=== PATIENT | female | born 1945 | race Caucasian/White ===

== ENCOUNTER 2017-01-04 07:20 | Inpatient (IN) ==
[2017-01-04] MEDS ORDERED: ASPIRIN 325 MG TABLET PO STA (07:40)
[2017-01-04] MEDS ORDERED: ONDANSETRON 4 MG/2 ML VIAL IV STA (07:40)
[2017-01-04] MEDS ORDERED: NITROGLYCERIN SL 0.4 MG TABLET SL PRN (07:40)
[2017-01-04] MEDS ORDERED: NITROGLYCERIN 2% OINT 1 INCH/GM PACK TOP STA (07:40)
[2017-01-04 07:54] LABS: Basophils % 0.5 % (0.0-0.8); Eosinophils # 0.4 10*3/uL (0.0-0.87); Hematocrit 38.8 VOL% (35.7-47.0); Hemoglobin 13.1 GM/DL (12.0-16.0); Immature Granulocytes % 0.7 %; Immature Granulocytes Absolute 0.06 #; Lymphocytes % 22.8 % (21.3-54.2); Mean Corpuscular HGB Conc 33.8 GM/DL (32-36); Mean Corpuscular Hemoglobin 31 PG (27-34); Mean Corpuscular Volume 92.6 FL (87-102); Mean Platelet Volume 10.3 FL (9.6-12.0); Monocytes # 0.5 10*3/uL (0.11-0.8); Monocytes % 6.1 % (1.7-12.7); Neutrophils # 5.8 10*3/uL (1.4-7.4); Neutrophils % 65.9 % (38.7-73.9); Platelet Count 213 T/CUMM (130-400); Red Blood Count 4.19 MC/CUMM (3.8-5.5); Red Cell Distribution Width 12.8 % (9.3-17.3); White Blood Count 8.7 T/CUMM (4-12)
[2017-01-04 08:02] LABS: INR 0.9; PT Patient Result 9.8 SECS; Partial Thromboplastin Time 26.4 SECS (0-40)
[2017-01-04 08:28] LABS: Albumin 4.2 G/DL (3.4-5.0); Bilirubin,Total 0.8 MG/DL (0.2-1.0); Magnesium 1.5 MG/DL (1.8-2.4); Osmolality,Calculated 281.4 MOS/KG (273-304); Potassium 4.9 MMOL/L (3.5-5.1); Total Protein 7.3 G/DL (6.4-8.3)
[2017-01-04] MEDS ORDERED: NITROGLYCERIN 2% OINT 1 INCH/GM PACK TOP ONE (08:40)
[2017-01-04] MEDS ORDERED: ONDANSETRON 4 MG/2 ML VIAL ONE ×2 (08:40→13:02)
[2017-01-04] MEDS ORDERED: ASPIRIN 325 MG TABLET ONE (08:40)
[2017-01-04] MEDS ORDERED: HYDROmorphone 2 MG/1 ML VIAL IV PRN (12:32)
[2017-01-04] MEDS ORDERED: AMPICILLIN/SULBACTAM 3,000 MG in SODIUM CHLORIDE 0.9% 100 ML IV STA (12:32)
[2017-01-04] MEDS ORDERED: ONDANSETRON 4 MG/2 ML VIAL IV PRN ×2 (12:32→15:53)
[2017-01-04] MEDS ORDERED: LIDOCAINE 1%/EPI INJ 20 ML VIAL ONE (12:58)
[2017-01-04] MEDS ORDERED: TISSUE ADHESIVE 1 EACH APPLICATOR TOP ONE (12:59)
[2017-01-04] MEDS ORDERED: BUPIVACAINE 0.25% 50 ML VIAL ONE (12:59)
[2017-01-04] MEDS ORDERED: HYDROmorphone 2 MG/1 ML VIAL ONE (13:02)
[2017-01-04] MEDS ORDERED: AMPICILLIN/SULBACTAM 3,000 MG VIAL ONE (13:02)
[2017-01-04] MEDS ORDERED: SODIUM CHLORIDE 0.9% 100 ML IV ONE (13:03)
[2017-01-04] MEDS ORDERED: MORPHINE 2 MG/1 ML SYRINGE IV PRN (15:53)
[2017-01-04] MEDS ORDERED: ASPIRIN EC 81 MG TABLET PO PRN (15:53)
[2017-01-04] MEDS ORDERED: DEXTROSE 50% 25 GM/50 ML VIAL IV PRN (15:53)
[2017-01-04] MEDS ORDERED: GLUCAGON 1 MG VIAL IM PRN (15:53)
[2017-01-04] MEDS ORDERED: ACETAMINOPHEN 325 MG TABLET PO PRN (15:53)
[2017-01-04] MEDS: LACTATED RINGERS 1,000 ML IV SCH (16:10)
[2017-01-04] MEDS: INSULIN LISPRO 100 UNIT/ML SUBCUT SCH ×2 (16:39→20:00)
[2017-01-04] MEDS: cefOXitin 2,000 MG in SYRINGE 1 EACH IV SCH (17:56)
[2017-01-04] MEDS ORDERED: MAGNESIUM SULF RIDER 2 GM in PREMIX 1 EACH IV PRN (18:56)
[2017-01-04] MEDS ORDERED: MAGNESIUM SULF RIDER 4 GM in PREMIX 1 EACH IV PRN (18:56)
[2017-01-04] MEDS: METOPROLOL TARTRATE 25 MG TABLET PO SCH (21:58)
[2017-01-04] MEDS: ROSUVASTATIN 20 MG TABLET PO SCH (21:58)
[2017-01-05] MEDS: LACTATED RINGERS 1,000 ML IV SCH ×4 (00:28→23:04)
[2017-01-05] MEDS: cefOXitin 2,000 MG in SYRINGE 1 EACH IV SCH ×4 (00:30→21:42)
[2017-01-05 07:32] LABS: Basophils % 0.5 % (0.0-0.8); Eosinophils # 0.2 10*3/uL (0.0-0.87); Eosinophils % 3.4 % (0.00-10.9); Hematocrit 33.1 VOL% (35.7-47.0); Hemoglobin 11.2 GM/DL (12.0-16.0); Immature Granulocytes % 0.3 %; Immature Granulocytes Absolute 0.02 #; Lymphocytes # 0.8 10*3/uL (1.4-4.0); Lymphocytes % 13.7 % (21.3-54.2); Mean Corpuscular HGB Conc 33.8 GM/DL (32-36); Mean Corpuscular Hemoglobin 31 PG (27-34); Mean Corpuscular Volume 92.2 FL (87-102); Mean Platelet Volume 10.4 FL (9.6-12.0); Monocytes # 0.5 10*3/uL (0.11-0.8); Monocytes % 8.8 % (1.7-12.7); Neutrophils # 4.5 10*3/uL (1.4-7.4); Neutrophils % 73.3 % (38.7-73.9); Platelet Count 173 T/CUMM (130-400); Red Blood Count 3.59 MC/CUMM (3.8-5.5); Red Cell Distribution Width 12.7 % (9.3-17.3); White Blood Count 6.2 T/CUMM (4-12)
[2017-01-05 08:09] LABS: Albumin 3.4 G/DL (3.4-5.0); Bilirubin,Total 1.1 MG/DL (0.2-1.0); Calcium 8.8 MG/DL (8.5-10.1); Magnesium 2.5 MG/DL (1.8-2.4); Osmolality,Calculated 281.1 MOS/KG (273-304); Total Protein 5.8 G/DL (6.4-8.3)
[2017-01-05] MEDS: INSULIN LISPRO 100 UNIT/ML SUBCUT SCH ×4 (08:47→20:36)
[2017-01-05] MEDS: PANTOPRAZOLE 40 MG TABLET PO SCH (08:47)
[2017-01-05] MEDS: METOPROLOL TARTRATE 25 MG TABLET PO SCH ×2 (08:47→20:33)
[2017-01-05] MEDS ORDERED: SODIUM CHLORIDE 0.9% 1,000 ML IV ONE (12:04)
[2017-01-05] MEDS: ROSUVASTATIN 20 MG TABLET PO SCH (20:33)
[2017-01-06] MEDS: cefOXitin 2,000 MG in SYRINGE 1 EACH IV SCH ×3 (05:35→21:26)
[2017-01-06 06:17] LABS: Calcium 8.4 MG/DL (8.5-10.1); Potassium 4.6 MMOL/L (3.5-5.1)
[2017-01-06] MEDS: LACTATED RINGERS 1,000 ML IV SCH (08:00)
[2017-01-06] MEDS: INSULIN LISPRO 100 UNIT/ML SUBCUT SCH ×4 (08:18→20:20)
[2017-01-06] MEDS: METOPROLOL TARTRATE 25 MG TABLET PO SCH ×2 (09:14→20:20)
[2017-01-06] MEDS: PANTOPRAZOLE 40 MG TABLET PO SCH (09:14)
[2017-01-06] MEDS ORDERED: BUPIVACAINE 0.25% 50 ML VIAL ONE (16:30)
[2017-01-06] MEDS ORDERED: ONDANSETRON 4 MG/2 ML VIAL ONE (17:32)
[2017-01-06] MEDS ORDERED: LABETALOL 20 MG/4 ML SYRINGE IV ONE (17:38)
[2017-01-06] MEDS ORDERED: DESFLURANE 1 UNIT/15 MINUTE INH ONE (17:38)
[2017-01-06] MEDS ORDERED: PROPOFOL 200 MG/20 ML VIAL IV ONE (17:38)
[2017-01-06] MEDS ORDERED: fentaNYL 100 MCG/2 ML VIAL ONE (17:38)
[2017-01-06] MEDS ORDERED: SUCCINYLCHOLINE 200 MG/10 ML VIAL ONE (17:38)
[2017-01-06] MEDS ORDERED: ROCURONIUM 100 MG/10 ML VIAL IV ONE (17:39)
[2017-01-06] MEDS: ROSUVASTATIN 20 MG TABLET PO SCH (20:20)
[2017-01-07 04:58] LABS: Calcium 7.9 MG/DL (8.5-10.1); Osmolality,Calculated 279.1 MOS/KG (273-304); Potassium 4.9 MMOL/L (3.5-5.1)
[2017-01-07] MEDS: LACTATED RINGERS 1,000 ML IV SCH (05:03)
[2017-01-07] MEDS: cefOXitin 2,000 MG in SYRINGE 1 EACH IV SCH (05:07)
[2017-01-07] MEDS: INSULIN LISPRO 100 UNIT/ML SUBCUT SCH ×2 (09:54→14:20)
[2017-01-07] MEDS: METOPROLOL TARTRATE 25 MG TABLET PO SCH (10:03)
[2017-01-07] MEDS: PANTOPRAZOLE 40 MG TABLET PO SCH (10:03)
[2017-01-07 11:39] VITALS: BP 144/80
== END 2017-01-07 13:35 | disposition home health service (06) | DRG 418 ==
LOC: N.ED 07:20 → N.EDINP 13:04 → N.5E 15:52
PROVIDERS: ADMIT Surgery; ATTEND Surgery
PROC: LAPCHOL (2017-01-06 16:07)

== ENCOUNTER 2018-01-31 11:43 | Inpatient (IN) ==
[2018-01-31] MEDS ORDERED: MORPHINE 4 MG/1 ML VIAL IV STA (14:17)
[2018-01-31] MEDS ORDERED: ONDANSETRON 4 MG/2 ML VIAL IV STA (14:17)
[2018-01-31] MEDS ORDERED: MORPHINE 4 MG/1 ML VIAL ONE (14:29)
[2018-01-31] MEDS ORDERED: ONDANSETRON 4 MG/2 ML VIAL ONE (14:29)
[2018-01-31 14:53] LABS: Basophils % 0.4 % (0.0-0.8); Eosinophils % 0.3 % (0.00-10.9); Hematocrit 25.2 VOL% (35.7-47.0); Hemoglobin 8.4 GM/DL (12.0-16.0); Immature Granulocytes % 0.6 %; Immature Granulocytes Absolute 0.06 #; Lymphocytes # 0.2 10*3/uL (1.4-4.0); Lymphocytes % 2.5 % (21.3-54.2); Mean Corpuscular HGB Conc 33.3 GM/DL (32-36); Mean Corpuscular Hemoglobin 32 PG (27-34); Mean Corpuscular Volume 95.5 FL (87-102); Mean Platelet Volume 10.8 FL (9.6-12.0); Monocytes # 0.4 10*3/uL (0.11-0.8); Neutrophils # 8.8 10*3/uL (1.4-7.4); Neutrophils % 92.2 % (38.7-73.9); Platelet Count 125 T/CUMM (130-400); Red Blood Count 2.64 MC/CUMM (3.8-5.5); Red Cell Distribution Width 13.6 % (9.3-17.3); White Blood Count 9.5 T/CUMM (4-12)
[2018-01-31 15:02] LABS: PT Patient Result 10.7 SECS
[2018-01-31 15:16] LABS: Calcium 8.9 MG/DL (8.5-10.1); Osmolality,Calculated 291.3 MOS/KG (273-304)
[2018-01-31 15:29] LABS: Apearance,Urine Slightly Hazy (Clear); Bilirubin,Urine Negative (Negative); Blood, Urine Small mg/dL (Negative); Glucose,Urine (UA) Negative (Negative); Ketones,Urine 5 mg/dL (Negative); Mucus,Urine Occasional /LPF (Occasional); Nitrite,Urine Negative (Negative); Protein,Urine Negative; RBC,Urine 1 /HPF (0-4); Urine Color Yellow (Yellow); Urine Urobilinogen < 2.0 EU/DL (0.2-1.0)
[2018-01-31 15:46] LABS: Anisocytosis 1+; Hypochromasia Slight; Macrocytosis Slight; Ovalocytes Few
[2018-01-31 15:48] LABS: Burr Cells Few; Helmet Cells Few; Platelet Estimate Normal
[2018-01-31] MEDS ORDERED: LACTULOSE 20 GM/30 ML UDCUP PO PRN (16:02)
[2018-01-31] MEDS ORDERED: ACETAMINOPHEN 325 MG TABLET PO PRN (16:02)
[2018-01-31] MEDS ORDERED: MORPHINE 4 MG/1 ML VIAL IV PRN (16:02)
[2018-01-31] MEDS ORDERED: DEXTROSE 50% 25 GM/50 ML SYRINGE IV PRN (16:06)
[2018-01-31] MEDS ORDERED: GLUCAGON 1 MG VIAL IM PRN (16:06)
[2018-01-31] MEDS ORDERED: BISACODYL 10 MG SUPP RECTAL ONE (16:45)
[2018-01-31] MEDS: INSULIN LISPRO 100 UNIT/ML SUBCUT SCH ×2 (19:47→20:55)
[2018-01-31] MEDS: SODIUM CHLORIDE 0.9% 1,000 ML IV SCH (19:49)
[2018-01-31] MEDS: DOCUSATE SODIUM 100 MG CAPSULE PO SCH (20:52)
[2018-01-31] MEDS: ENOXAPARIN 30 MG/0.3 ML SYRINGE SUBCUT SCH (20:54)
[2018-02-01] MEDS ORDERED: BISACODYL 10 MG SUPP RECTAL ONE (00:30)
[2018-02-01] MEDS: SODIUM CHLORIDE 0.9% 1,000 ML IV SCH ×2 (04:14→17:33)
[2018-02-01 05:16] LABS: Basophils % 0.4 % (0.0-0.8); Eosinophils % 0.4 % (0.00-10.9); Hematocrit 22.4 VOL% (35.7-47.0); Hemoglobin 7.4 GM/DL (12.0-16.0); Immature Granulocytes % 0.6 %; Immature Granulocytes Absolute 0.04 #; Lymphocytes # 0.5 10*3/uL (1.4-4.0); Mean Corpuscular Hemoglobin 32 PG (27-34); Mean Corpuscular Volume 96.6 FL (87-102); Mean Platelet Volume 11.2 FL (9.6-12.0); Monocytes # 0.5 10*3/uL (0.11-0.8); Monocytes % 7.2 % (1.7-12.7); Neutrophils # 5.8 10*3/uL (1.4-7.4); Neutrophils % 84.4 % (38.7-73.9); Platelet Count 112 T/CUMM (130-400); Red Blood Count 2.32 MC/CUMM (3.8-5.5); Red Cell Distribution Width 13.7 % (9.3-17.3); White Blood Count 6.8 T/CUMM (4-12)
[2018-02-01 05:54] LABS: Albumin 2.9 G/DL (3.4-5.0); Bilirubin,Total 1.7 MG/DL (0.2-1.0); Calcium 8.3 MG/DL (8.5-10.1); Osmolality,Calculated 290.3 MOS/KG (273-304); Potassium 4.6 MMOL/L (3.5-5.1)
[2018-02-01] MEDS: DOCUSATE SODIUM 100 MG CAPSULE PO SCH ×2 (10:04→20:38)
[2018-02-01] MEDS: BISACODYL 5 MG TABLET PO SCH (10:04)
[2018-02-01] MEDS: INSULIN LISPRO 100 UNIT/ML SUBCUT SCH ×4 (10:04→20:46)
[2018-02-01] MEDS: PANTOPRAZOLE 40 MG TABLET PO SCH (10:05)
[2018-02-01] MEDS ORDERED: SODIUM CHLORIDE 0.9% 1,000 ML IV PRN (10:27)
[2018-02-01 13:54] LABS: Apearance,Urine CLEAR (Clear); Bacteria,Urine Occasional /HPF (Few); Bilirubin,Urine Negative (Negative); Blood, Urine Small mg/dL (Negative); Glucose,Urine (UA) Negative (Negative); Ketones,Urine Negative (Negative); Mucus,Urine Occasional /LPF (Occasional); Nitrite,Urine Negative (Negative); Protein,Urine Negative; RBC,Urine 1 /HPF (0-4); Urine Color Straw (Yellow); Urine Specific Gravity 1.008 (1.001-1.035); Urine Urobilinogen < 2.0 EU/DL (0.2-1.0); WBC,Urine 4 /HPF (0-6)
[2018-02-01] MEDS ORDERED: METOPROLOL TARTRATE 5 MG/5 ML VIAL IV ONE (20:04)
[2018-02-01] MEDS: ENOXAPARIN 30 MG/0.3 ML SYRINGE SUBCUT SCH (20:41)
[2018-02-02 05:50] LABS: Calcium 8.1 MG/DL (8.5-10.1); Osmolality,Calculated 291.3 MOS/KG (273-304); Potassium 4.1 MMOL/L (3.5-5.1)
[2018-02-02 06:52] LABS: Basophils % 0.2 % (0.0-0.8); Eosinophils # 0.1 10*3/uL (0.0-0.87); Immature Granulocytes % 0.7 %; Immature Granulocytes Absolute 0.06 #; Lymphocytes # 0.3 10*3/uL (1.4-4.0); Lymphocytes % 3.3 % (21.3-54.2); Mean Corpuscular HGB Conc 32.9 GM/DL (32-36); Mean Corpuscular Hemoglobin 31 PG (27-34); Mean Corpuscular Volume 93.1 FL (87-102); Mean Platelet Volume 10.8 FL (9.6-12.0); Monocytes # 0.6 10*3/uL (0.11-0.8); Monocytes % 6.6 % (1.7-12.7); Neutrophils % 88.2 % (38.7-73.9); Red Cell Distribution Width 14.6 % (9.3-17.3)
[2018-02-02 07:00] LABS: Red Blood Count 3.33 MC/CUMM (3.8-5.5)
[2018-02-02 07:01] LABS: Hemoglobin 10.2 GM/DL (12.0-16.0); Platelet Count 86 T/CUMM (130-400)
[2018-02-02 08:01] LABS: Band Neutrophils 4 % (0-10); Eosinophils 1 % (0-10); Lymphocytes 3 % (20-55); Segmented Neutrophils 91 % (50-85); Total Cells Counted 100
[2018-02-02 08:02] LABS: Hypochromasia Slight; Microcytosis 1+
[2018-02-02 08:03] LABS: Platelet Estimate Decreased
[2018-02-02] MEDS: INSULIN LISPRO 100 UNIT/ML SUBCUT SCH ×4 (08:31→21:20)
[2018-02-02] MEDS: SODIUM CHLORIDE 0.9% 1,000 ML IV SCH (09:07)
[2018-02-02] MEDS: DOCUSATE SODIUM 100 MG CAPSULE PO SCH ×2 (09:07→21:08)
[2018-02-02] MEDS: BISACODYL 5 MG TABLET PO SCH (09:07)
[2018-02-02] MEDS: PANTOPRAZOLE 40 MG TABLET PO SCH (09:07)
[2018-02-02] MEDS: METOPROLOL TARTRATE 25 MG TABLET PO SCH ×2 (09:07→21:08)
[2018-02-02] MEDS: ONDANSETRON 4 MG/2 ML VIAL IV PRN ×2 (13:42→17:28)
[2018-02-02] MEDS: ENOXAPARIN 30 MG/0.3 ML SYRINGE SUBCUT SCH (21:08)
[2018-02-02] MEDS ORDERED: HEPARIN LOCK FLUSH 500 UNIT/5 ML SYRINGE IV ONE (22:20)
[2018-02-03] MEDS: SODIUM CHLORIDE 0.9% 1,000 ML IV SCH ×3 (02:26→16:00)
[2018-02-03 05:02] LABS: Basophils % 0.3 % (0.0-0.8); Eosinophils # 0.2 10*3/uL (0.0-0.87); Eosinophils % 1.8 % (0.00-10.9); Hematocrit 29.4 VOL% (35.7-47.0); Hemoglobin 9.9 GM/DL (12.0-16.0); Immature Granulocytes % 0.7 %; Immature Granulocytes Absolute 0.06 #; Lymphocytes # 0.4 10*3/uL (1.4-4.0); Lymphocytes % 4.2 % (21.3-54.2); Mean Corpuscular HGB Conc 33.7 GM/DL (32-36); Mean Corpuscular Hemoglobin 31 PG (27-34); Mean Platelet Volume 11.3 FL (9.6-12.0); Monocytes # 0.7 10*3/uL (0.11-0.8); Monocytes % 8.1 % (1.7-12.7); Neutrophils # 7.8 10*3/uL (1.4-7.4); Neutrophils % 84.9 % (38.7-73.9); Red Blood Count 3.16 MC/CUMM (3.8-5.5); Red Cell Distribution Width 14.5 % (9.3-17.3); White Blood Count 9.1 T/CUMM (4-12)
[2018-02-03 05:05] LABS: Platelet Count 77 T/CUMM (130-400)
[2018-02-03 05:28] LABS: Alanine Aminotransferase < 9 U/L (13-56); Albumin 2.3 G/DL (3.4-5.0); Alkaline Phosphatase 38 U/L (45-117); Aspartate Amino Transferase 9 U/L (0-37); Blood Urea Nitrogen 41 MG/DL (7-18); Calcium 7.7 MG/DL (8.5-10.1); Glucose 82 MG/DL (74-106); Osmolality,Calculated 289.3 MOS/KG (273-304); Potassium 3.9 MMOL/L (3.5-5.1); Sodium 141 MMOL/L (136-145); Total Protein 5.4 G/DL (6.4-8.3)
[2018-02-03 05:50] LABS: Band Neutrophils 1 % (0-10); Eosinophils 4 % (0-10); Lymphocytes 3 % (20-55); Platelet Estimate Decreased; Segmented Neutrophils 89 % (50-85); Total Cells Counted 100
[2018-02-03] MEDS ORDERED: POLYETHYLENE GLYCOL POWDER 17 GM PACK PO PRN (07:09)
[2018-02-03] MEDS: INSULIN LISPRO 100 UNIT/ML SUBCUT SCH ×4 (08:10→22:58)
[2018-02-03] MEDS: PANTOPRAZOLE 40 MG TABLET PO SCH (08:34)
[2018-02-03] MEDS: METOPROLOL TARTRATE 25 MG TABLET PO SCH ×2 (08:34→21:16)
[2018-02-03] MEDS: BISACODYL 5 MG TABLET PO SCH (08:36)
[2018-02-03] MEDS: DOCUSATE SODIUM 100 MG CAPSULE PO SCH ×2 (08:36→21:16)
[2018-02-03] MEDS: LETROZOLE 2.5 MG TABLET PO SCH (10:22)
[2018-02-03] MEDS: ENOXAPARIN 30 MG/0.3 ML SYRINGE SUBCUT SCH (21:16)
[2018-02-04 04:25] LABS: Calcium 7.3 MG/DL (8.5-10.1); Osmolality,Calculated 289.3 MOS/KG (273-304); Potassium 3.6 MMOL/L (3.5-5.1)
[2018-02-04] MEDS: SODIUM CHLORIDE 0.9% 1,000 ML IV SCH (05:25)
[2018-02-04] MEDS: INSULIN LISPRO 100 UNIT/ML SUBCUT SCH ×4 (08:43→21:14)
[2018-02-04] MEDS ORDERED: CHOLESTYRAMINE 4 GM PACK PO SCH (09:00)
[2018-02-04] MEDS: PANTOPRAZOLE 40 MG TABLET PO SCH (11:49)
[2018-02-04] MEDS: LETROZOLE 2.5 MG TABLET PO SCH (11:49)
[2018-02-04] MEDS: DOCUSATE SODIUM 100 MG CAPSULE PO SCH (11:49)
[2018-02-04] MEDS: METOPROLOL TARTRATE 25 MG TABLET PO SCH ×2 (11:49→21:14)
[2018-02-04] MEDS: BISACODYL 5 MG TABLET PO SCH (11:50)
[2018-02-04] MEDS: ENOXAPARIN 30 MG/0.3 ML SYRINGE SUBCUT SCH (21:15)
[2018-02-05] MEDS: DOCUSATE SODIUM 100 MG CAPSULE PO SCH ×2 (04:02→09:42)
[2018-02-05] MEDS: SODIUM CHLORIDE 0.9% 1,000 ML IV SCH ×2 (04:10→09:41)
[2018-02-05 05:53] LABS: Calcium 6.9 MG/DL (8.5-10.1); Osmolality,Calculated 294.8 MOS/KG (273-304); Potassium 3.4 MMOL/L (3.5-5.1)
[2018-02-05] MEDS: INSULIN LISPRO 100 UNIT/ML SUBCUT SCH ×4 (08:52→20:51)
[2018-02-05] MEDS: BISACODYL 5 MG TABLET PO SCH (08:57)
[2018-02-05] MEDS: LETROZOLE 2.5 MG TABLET PO SCH (09:43)
[2018-02-05] MEDS: PANTOPRAZOLE 40 MG TABLET PO SCH (09:43)
[2018-02-05] MEDS: METOPROLOL TARTRATE 25 MG TABLET PO SCH ×2 (09:43→20:50)
[2018-02-05] MEDS: ENOXAPARIN 30 MG/0.3 ML SYRINGE SUBCUT SCH (20:50)
[2018-02-06 05:18] LABS: Calcium 7.9 MG/DL (8.5-10.1); Osmolality,Calculated 293.8 MOS/KG (273-304); Potassium 3.3 MMOL/L (3.5-5.1)
[2018-02-06] MEDS: DOCUSATE SODIUM 100 MG CAPSULE PO SCH ×3 (06:28→21:00)
[2018-02-06] MEDS: SODIUM CHLORIDE 0.9% 1,000 ML IV SCH ×3 (06:29→23:30)
[2018-02-06] MEDS: INSULIN LISPRO 100 UNIT/ML SUBCUT SCH ×4 (08:01→21:00)
[2018-02-06] MEDS: BISACODYL 5 MG TABLET PO SCH (09:09)
[2018-02-06] MEDS: METOPROLOL TARTRATE 25 MG TABLET PO SCH ×2 (10:22→21:00)
[2018-02-06] MEDS: LETROZOLE 2.5 MG TABLET PO SCH (10:23)
[2018-02-06] MEDS: PANTOPRAZOLE 40 MG TABLET PO SCH (10:23)
[2018-02-06] MEDS: MIRTAZAPINE 15 MG TABLET PO SCH (21:00)
[2018-02-06] MEDS: hydrALAZINE 25 MG TABLET PO SCH (21:00)
[2018-02-06] MEDS: ENOXAPARIN 30 MG/0.3 ML SYRINGE SUBCUT SCH (21:00)
[2018-02-07 05:14] LABS: Basophils % 0.4 % (0.0-0.8); Eosinophils # 0.5 10*3/uL (0.0-0.87); Eosinophils % 6.2 % (0.00-10.9); Hematocrit 26.8 VOL% (35.7-47.0); Hemoglobin 8.8 GM/DL (12.0-16.0); Immature Granulocytes % 1.2 %; Immature Granulocytes Absolute 0.09 #; Lymphocytes # 0.4 10*3/uL (1.4-4.0); Lymphocytes % 5.6 % (21.3-54.2); Mean Corpuscular HGB Conc 32.8 GM/DL (32-36); Mean Corpuscular Hemoglobin 31 PG (27-34); Mean Corpuscular Volume 93.1 FL (87-102); Mean Platelet Volume 10.9 FL (9.6-12.0); Monocytes # 0.7 10*3/uL (0.11-0.8); Monocytes % 9.7 % (1.7-12.7); Neutrophils # 5.9 10*3/uL (1.4-7.4); Neutrophils % 76.9 % (38.7-73.9); Platelet Count 125 T/CUMM (130-400); Red Blood Count 2.88 MC/CUMM (3.8-5.5); Red Cell Distribution Width 14.2 % (9.3-17.3); White Blood Count 7.6 T/CUMM (4-12)
[2018-02-07 09:10] LABS: Calcium 7.8 MG/DL (8.5-10.1); Osmolality,Calculated 293.8 MOS/KG (273-304); Potassium 3.2 MMOL/L (3.5-5.1)
[2018-02-07] MEDS: INSULIN LISPRO 100 UNIT/ML SUBCUT SCH ×4 (10:10→21:13)
[2018-02-07] MEDS: BISACODYL 5 MG TABLET PO SCH (10:11)
[2018-02-07] MEDS: DOCUSATE SODIUM 100 MG CAPSULE PO SCH ×2 (10:11→21:13)
[2018-02-07] MEDS: hydrALAZINE 25 MG TABLET PO SCH ×2 (10:12→21:13)
[2018-02-07] MEDS: METOPROLOL TARTRATE 25 MG TABLET PO SCH ×2 (10:12→21:13)
[2018-02-07] MEDS: PANTOPRAZOLE 40 MG TABLET PO SCH (10:12)
[2018-02-07] MEDS: LETROZOLE 2.5 MG TABLET PO SCH (10:12)
[2018-02-07] MEDS ORDERED: POTASSIUM CHLORIDE 20 MEQ TABLET PO PRN (13:02)
[2018-02-07] MEDS: SODIUM CHLORIDE 0.45% 1,000 ML IV SCH (14:28)
[2018-02-07] MEDS: amLODIPine 2.5 MG TABLET PO SCH (14:28)
[2018-02-07] MEDS ORDERED: POTASSIUM CHLORIDE RIDER 20 MEQ in PREMIX 1 EACH IV PRN (15:52)
[2018-02-07] MEDS ORDERED: POTASSIUM CHLORIDE RIDER 10 MEQ in PREMIX 1 EACH IV PRN (15:57)
[2018-02-07] MEDS: POTASSIUM CHLORIDE RIDER 20 MEQ in PREMIX 1 EACH IV PRN ×2 (16:31→21:18)
[2018-02-07] MEDS: SODIUM CHLORIDE 1 GM TABLET PO SCH (21:12)
[2018-02-07] MEDS: ENOXAPARIN 30 MG/0.3 ML SYRINGE SUBCUT SCH (21:13)
[2018-02-07] MEDS: MIRTAZAPINE 15 MG TABLET PO SCH (21:13)
[2018-02-08] MEDS ORDERED: ASPIRIN EC 81 MG TABLET PO PRN (08:39)
[2018-02-08] MEDS ORDERED: DEXAMETHASONE INJ 20 MG in SODIUM CHLORIDE 0.9% 50 ML IV ONE (09:30)
[2018-02-08] MEDS: INSULIN LISPRO 100 UNIT/ML SUBCUT SCH ×4 (09:36→20:59)
[2018-02-08] MEDS: SODIUM CHLORIDE 1 GM TABLET PO SCH ×2 (09:37→20:57)
[2018-02-08] MEDS: PANTOPRAZOLE 40 MG TABLET PO SCH (09:37)
[2018-02-08] MEDS: METOPROLOL TARTRATE 25 MG TABLET PO SCH ×4 (09:37→20:58)
[2018-02-08] MEDS: LETROZOLE 2.5 MG TABLET PO SCH (09:37)
[2018-02-08] MEDS: amLODIPine 2.5 MG TABLET PO SCH (09:37)
[2018-02-08] MEDS: hydrALAZINE 25 MG TABLET PO SCH ×2 (09:37→20:58)
[2018-02-08] MEDS: DOCUSATE SODIUM 100 MG CAPSULE PO SCH ×2 (09:38→21:02)
[2018-02-08] MEDS: SODIUM CHLORIDE 0.45% 1,000 ML IV SCH (09:38)
[2018-02-08] MEDS: BISACODYL 5 MG TABLET PO SCH (09:38)
[2018-02-08] MEDS ORDERED: MECLIZINE 25 MG TABLET PO PRN (15:00)
[2018-02-08] MEDS: BENDAMUSTINE IV SCH (17:14)
[2018-02-08] MEDS: SODIUM CHLORIDE 0.9% IV SCH (17:14)
[2018-02-08] MEDS: metFORMIN 500 MG TABLET PO SCH (18:45)
[2018-02-08] MEDS: MIRTAZAPINE 15 MG TABLET PO SCH (20:58)
[2018-02-08] MEDS: ENOXAPARIN 30 MG/0.3 ML SYRINGE SUBCUT SCH (20:58)
[2018-02-08] MEDS: ROSUVASTATIN 20 MG TABLET PO SCH (21:10)
[2018-02-09] MEDS: SODIUM CHLORIDE 0.45% 1,000 ML IV SCH ×2 (04:18→20:59)
[2018-02-09 05:20] LABS: Basophils % 0.3 % (0.0-0.8); Hematocrit 27.8 VOL% (35.7-47.0); Immature Granulocytes % 2.5 %; Immature Granulocytes Absolute 0.19 #; Lymphocytes # 0.4 10*3/uL (1.4-4.0); Lymphocytes % 4.8 % (21.3-54.2); Mean Corpuscular HGB Conc 32.4 GM/DL (32-36); Mean Corpuscular Hemoglobin 30 PG (27-34); Mean Corpuscular Volume 93.9 FL (87-102); Mean Platelet Volume 10.9 FL (9.6-12.0); Monocytes # 0.2 10*3/uL (0.11-0.8); Monocytes % 2.5 % (1.7-12.7); Neutrophils # 6.8 10*3/uL (1.4-7.4); Neutrophils % 89.9 % (38.7-73.9); Platelet Count 180 T/CUMM (130-400); Red Blood Count 2.96 MC/CUMM (3.8-5.5); Red Cell Distribution Width 14.1 % (9.3-17.3); White Blood Count 7.6 T/CUMM (4-12)
[2018-02-09 05:38] LABS: Alanine Aminotransferase < 9 U/L (13-56); Alkaline Phosphatase 44 U/L (45-117); Aspartate Amino Transferase 5 U/L (0-37); Blood Urea Nitrogen 45 MG/DL (7-18); Calcium 7.8 MG/DL (8.5-10.1); Glucose 199 MG/DL (74-106); Osmolality,Calculated 294.5 MOS/KG (273-304); Potassium 3.9 MMOL/L (3.5-5.1); Sodium 139 MMOL/L (136-145); Total Protein 5.3 G/DL (6.4-8.3)
[2018-02-09 06:07] LABS: Band Neutrophils 1 % (0-10); Lymphocytes 1 % (20-55); Platelet Estimate Adequate; Segmented Neutrophils 95 % (50-85); Total Cells Counted 100
[2018-02-09] MEDS: METOPROLOL TARTRATE 25 MG TABLET PO SCH ×3 (10:02→21:00)
[2018-02-09] MEDS: hydrALAZINE 25 MG TABLET PO SCH ×2 (10:03→21:01)
[2018-02-09] MEDS: PANTOPRAZOLE 40 MG TABLET PO SCH (10:03)
[2018-02-09] MEDS: amLODIPine 2.5 MG TABLET PO SCH (10:03)
[2018-02-09] MEDS: metFORMIN 500 MG TABLET PO SCH (10:03)
[2018-02-09] MEDS: INSULIN LISPRO 100 UNIT/ML SUBCUT SCH ×3 (10:04→16:30)
[2018-02-09] MEDS: SODIUM CHLORIDE 0.9% IV SCH (10:04)
[2018-02-09] MEDS: BENDAMUSTINE IV SCH (10:04)
[2018-02-09] MEDS: DOCUSATE SODIUM 100 MG CAPSULE PO SCH (10:05)
[2018-02-09] MEDS: BISACODYL 5 MG TABLET PO SCH (10:05)
[2018-02-09] MEDS: LETROZOLE 2.5 MG TABLET PO SCH (10:09)
[2018-02-09] MEDS: SODIUM CHLORIDE 1 GM TABLET PO SCH ×2 (10:09→20:40)
[2018-02-09] MEDS: LINACLOTIDE 145 MCG CAPSULE PO SCH (12:14)
[2018-02-09] MEDS: glipiZIDE 10 MG TABLET PO SCH (16:30)
[2018-02-09] MEDS: ROSUVASTATIN 20 MG TABLET PO SCH (21:00)
[2018-02-09] MEDS: ENOXAPARIN 30 MG/0.3 ML SYRINGE SUBCUT SCH (21:01)
[2018-02-09] MEDS: MIRTAZAPINE 15 MG TABLET PO SCH (21:01)
[2018-02-10] MEDS: INSULIN LISPRO 100 UNIT/ML SUBCUT SCH ×5 (01:35→22:50)
[2018-02-10] MEDS: DOCUSATE SODIUM 100 MG CAPSULE PO SCH ×3 (01:35→21:45)
[2018-02-10 05:27] LABS: Basophils % 0.2 % (0.0-0.8); Eosinophils % 0.1 % (0.00-10.9); Hematocrit 30.1 VOL% (35.7-47.0); Immature Granulocytes % 1.8 %; Immature Granulocytes Absolute 0.28 #; Lymphocytes # 0.6 10*3/uL (1.4-4.0); Lymphocytes % 3.8 % (21.3-54.2); Mean Corpuscular HGB Conc 33.2 GM/DL (32-36); Mean Corpuscular Hemoglobin 31 PG (27-34); Mean Corpuscular Volume 91.8 FL (87-102); Mean Platelet Volume 10.5 FL (9.6-12.0); Monocytes # 0.9 10*3/uL (0.11-0.8); Monocytes % 5.6 % (1.7-12.7); Neutrophils # 13.6 10*3/uL (1.4-7.4); Neutrophils % 88.5 % (38.7-73.9); Platelet Count 258 T/CUMM (130-400); Red Blood Count 3.28 MC/CUMM (3.8-5.5); Red Cell Distribution Width 14.1 % (9.3-17.3); White Blood Count 15.4 T/CUMM (4-12)
[2018-02-10 05:58] LABS: Band Neutrophils 2 % (0-10); Hypochromasia 1+; Lymphocytes 1 % (20-55); Ovalocytes Slight; Platelet Estimate Adequate; Segmented Neutrophils 92 % (50-85); Total Cells Counted 100
[2018-02-10 06:02] LABS: Alanine Aminotransferase < 9 U/L (13-56); Albumin 2.5 G/DL (3.4-5.0); Alkaline Phosphatase 55 U/L (45-117); Aspartate Amino Transferase 12 U/L (0-37); Blood Urea Nitrogen 47 MG/DL (7-18); Calcium 7.4 MG/DL (8.5-10.1); Glucose 44 MG/DL (74-106); Osmolality,Calculated 285.5 MOS/KG (273-304); Potassium 3.4 MMOL/L (3.5-5.1); Sodium 139 MMOL/L (136-145); Total Protein 5.6 G/DL (6.4-8.3)
[2018-02-10] MEDS: SODIUM CHLORIDE 0.45% 1,000 ML IV SCH ×3 (06:22→22:10)
[2018-02-10] MEDS: glipiZIDE 10 MG TABLET PO SCH ×2 (07:43→16:37)
[2018-02-10] MEDS: LINACLOTIDE 145 MCG CAPSULE PO SCH (08:03)
[2018-02-10] MEDS: BISACODYL 5 MG TABLET PO SCH (08:04)
[2018-02-10] MEDS: SODIUM CHLORIDE 1 GM TABLET PO SCH ×3 (08:43→23:48)
[2018-02-10] MEDS: METOPROLOL TARTRATE 25 MG TABLET PO SCH ×2 (08:43→21:45)
[2018-02-10] MEDS: LETROZOLE 2.5 MG TABLET PO SCH (08:43)
[2018-02-10] MEDS: hydrALAZINE 25 MG TABLET PO SCH ×2 (08:44→21:44)
[2018-02-10] MEDS: amLODIPine 2.5 MG TABLET PO SCH (08:44)
[2018-02-10] MEDS: PANTOPRAZOLE 40 MG TABLET PO SCH (08:44)
[2018-02-10] MEDS ORDERED: TUBERCULIN SKIN TEST 0.1 ML SYRINGE INTRADERM ONE (12:53)
[2018-02-10] MEDS ORDERED: MYLANTA/LIDO VISC 2:1 300 ML BOTTLE SWISH/SPIT PRN (18:34)
[2018-02-10] MEDS ORDERED: chlorproMAZINE 25 MG TABLET PO PRN (18:34)
[2018-02-10] MEDS ORDERED: TEMAZEPAM 7.5 MG CAPSULE PO PRN (18:34)
[2018-02-10] MEDS ORDERED: diphenhydrAMINE CAP 25 MG CAPSULE PO PRN (18:34)
[2018-02-10] MEDS ORDERED: LACTULOSE 20 GM/30 ML UDCUP PO PRN (18:34)
[2018-02-10] MEDS ORDERED: traMADol 50 MG TABLET PO PRN (18:34)
[2018-02-10] MEDS ORDERED: LOPERAMIDE 2 MG CAPSULE PO PRN ×2 (18:34)
[2018-02-10] MEDS ORDERED: ONDANSETRON 4 MG/2 ML VIAL IV PRN (18:34)
[2018-02-10] MEDS ORDERED: chlorproMAZINE INJ 50 MG in SODIUM CHLORIDE 0.9% 100 ML IV PRN (18:34)
[2018-02-10] MEDS ORDERED: ALPRAZolam 0.25 MG TABLET PO PRN (18:34)
[2018-02-10] MEDS ORDERED: guaiFENesin 200 MG/10 ML UDCUP PO PRN (18:34)
[2018-02-10] MEDS ORDERED: MAGNESIUM HYDROXIDE SUSP 30 ML UDCUP PO PRN (18:34)
[2018-02-10] MEDS ORDERED: ALUMINUM/MAGNES/SIMETH MAX STR 30 ML UDCUP PO PRN (18:34)
[2018-02-10] MEDS ORDERED: ACETAMINOPHEN 325 MG TABLET PO PRN (18:34)
[2018-02-10] MEDS ORDERED: BENZTROPINE 2 MG/2 ML AMP IV PRN (18:34)
[2018-02-10] MEDS ORDERED: chlorproMAZINE INJ 25 MG in SODIUM CHLORIDE 0.9% 100 ML IV PRN (18:34)
[2018-02-10] MEDS ORDERED: PROMETHAZINE INJ 25 MG in SODIUM CHLORIDE 0.9% 50 ML IV PRN (18:34)
[2018-02-10] MEDS ORDERED: MYLANTA/LIDO VISC 2:1 300 ML BOTTLE SWISH/SWAL PRN (18:34)
[2018-02-10] MEDS: MIRTAZAPINE 15 MG TABLET PO SCH (21:44)
[2018-02-10] MEDS: ENOXAPARIN 30 MG/0.3 ML SYRINGE SUBCUT SCH (21:44)
[2018-02-10] MEDS: ROSUVASTATIN 20 MG TABLET PO SCH (21:48)
[2018-02-11 07:35] LABS: Basophils % 0.2 % (0.0-0.8); Eosinophils # 0.2 10*3/uL (0.0-0.87); Eosinophils % 1.5 % (0.00-10.9); Hematocrit 28.4 VOL% (35.7-47.0); Hemoglobin 9.4 GM/DL (12.0-16.0); Immature Granulocytes % 0.8 %; Immature Granulocytes Absolute 0.09 #; Lymphocytes # 0.3 10*3/uL (1.4-4.0); Lymphocytes % 2.6 % (21.3-54.2); Mean Corpuscular HGB Conc 33.1 GM/DL (32-36); Mean Corpuscular Hemoglobin 31 PG (27-34); Mean Corpuscular Volume 93.1 FL (87-102); Mean Platelet Volume 9.7 FL (9.6-12.0); Monocytes # 0.6 10*3/uL (0.11-0.8); Monocytes % 5.3 % (1.7-12.7); Neutrophils # 9.8 10*3/uL (1.4-7.4); Neutrophils % 89.6 % (38.7-73.9); Platelet Count 192 T/CUMM (130-400); Red Blood Count 3.05 MC/CUMM (3.8-5.5); Red Cell Distribution Width 14.6 % (9.3-17.3)
[2018-02-11 08:05] LABS: Alanine Aminotransferase < 9 U/L (13-56); Albumin 2.1 G/DL (3.4-5.0); Alkaline Phosphatase 56 U/L (45-117); Aspartate Amino Transferase 9 U/L (0-37); Blood Urea Nitrogen 47 MG/DL (7-18); Calcium 7.1 MG/DL (8.5-10.1); Glucose 82 MG/DL (74-106); Osmolality,Calculated 285.7 MOS/KG (273-304); Potassium 4.1 MMOL/L (3.5-5.1); Sodium 138 MMOL/L (136-145); Total Protein 5.2 G/DL (6.4-8.3)
[2018-02-11] MEDS ORDERED: MAGNESIUM SULF RIDER 4 GM in PREMIX 1 EACH IV PRN (08:32)
[2018-02-11] MEDS ORDERED: MAGNESIUM SULF RIDER 2 GM in PREMIX 1 EACH IV PRN (08:32)
[2018-02-11] MEDS: LINACLOTIDE 145 MCG CAPSULE PO SCH (09:23)
[2018-02-11] MEDS: glipiZIDE 10 MG TABLET PO SCH (09:23)
[2018-02-11] MEDS: BISACODYL 5 MG TABLET PO SCH (09:23)
[2018-02-11] MEDS: INSULIN LISPRO 100 UNIT/ML SUBCUT SCH ×4 (09:23→21:18)
[2018-02-11] MEDS: DOCUSATE SODIUM 100 MG CAPSULE PO SCH ×2 (09:24→21:17)
[2018-02-11] MEDS: METOPROLOL TARTRATE 25 MG TABLET PO SCH ×2 (09:25→21:17)
[2018-02-11] MEDS: PANTOPRAZOLE 40 MG TABLET PO SCH (09:25)
[2018-02-11] MEDS: amLODIPine 2.5 MG TABLET PO SCH (09:25)
[2018-02-11] MEDS: LETROZOLE 2.5 MG TABLET PO SCH (09:25)
[2018-02-11] MEDS: hydrALAZINE 25 MG TABLET PO SCH ×2 (09:25→21:17)
[2018-02-11] MEDS: SODIUM CHLORIDE 1 GM TABLET PO SCH ×2 (09:25→14:10)
[2018-02-11] MEDS ORDERED: DEXTROSE 5% NACL 0.45% 1,000 ML IV SCH (10:00)
[2018-02-11] MEDS: SODIUM CHLORIDE 0.45% 1,000 ML IV SCH (12:31)
[2018-02-11 12:37] LABS: Lymphocytes 1 % (20-55); Polychromasia Few; Segmented Neutrophils 97 % (50-85); Total Cells Counted 100
[2018-02-11 12:40] LABS: Platelet Estimate Normal
[2018-02-11] MEDS: ONDANSETRON 4 MG/2 ML VIAL IV PRN (14:15)
[2018-02-11] MEDS: SODIUM BICARB INJ 50 MEQ in DEXTROSE 5% NACL 0.45% 1,000 ML IV SCH (19:30)
[2018-02-11] MEDS: ROSUVASTATIN 20 MG TABLET PO SCH (21:17)
[2018-02-11] MEDS: MIRTAZAPINE 15 MG TABLET PO SCH (21:17)
[2018-02-11] MEDS: ENOXAPARIN 30 MG/0.3 ML SYRINGE SUBCUT SCH (21:17)
[2018-02-12 06:22] LABS: Basophils % 0.3 % (0.0-0.8); Eosinophils # 0.2 10*3/uL (0.0-0.87); Eosinophils % 1.7 % (0.00-10.9); Hematocrit 25.4 VOL% (35.7-47.0); Hemoglobin 8.3 GM/DL (12.0-16.0); Immature Granulocytes % 0.6 %; Immature Granulocytes Absolute 0.06 #; Lymphocytes # 0.1 10*3/uL (1.4-4.0); Lymphocytes % 1.1 % (21.3-54.2); Mean Corpuscular HGB Conc 32.7 GM/DL (32-36); Mean Corpuscular Hemoglobin 31 PG (27-34); Mean Corpuscular Volume 93.7 FL (87-102); Monocytes # 0.3 10*3/uL (0.11-0.8); Monocytes % 3.5 % (1.7-12.7); Neutrophils # 8.9 10*3/uL (1.4-7.4); Neutrophils % 92.8 % (38.7-73.9); Platelet Count 178 T/CUMM (130-400); Red Blood Count 2.71 MC/CUMM (3.8-5.5); Red Cell Distribution Width 14.6 % (9.3-17.3); White Blood Count 9.6 T/CUMM (4-12)
[2018-02-12] MEDS: SODIUM BICARB INJ 50 MEQ in DEXTROSE 5% NACL 0.45% 1,000 ML IV SCH ×2 (06:35→20:34)
[2018-02-12 06:57] LABS: Alanine Aminotransferase < 6 U/L (13-56); Alkaline Phosphatase 51 U/L (45-117); Aspartate Amino Transferase 8 U/L (0-37); Bilirubin,Total < 0.39 MG/DL (0.2-1.0); Blood Urea Nitrogen 45 MG/DL (7-18); Glucose 123 MG/DL (74-106); Osmolality,Calculated 291.4 MOS/KG (273-304); Potassium 3.2 MMOL/L (3.5-5.1); Sodium 140 MMOL/L (136-145); Total Protein 4.6 G/DL (6.4-8.3)
[2018-02-12] MEDS ORDERED: SODIUM CHLORIDE 0.9% 1,000 ML IV PRN (07:09)
[2018-02-12 08:17] LABS: Hematocrit 25.9 VOL% (35.7-47.0); Hemoglobin 8.4 GM/DL (12.0-16.0)
[2018-02-12] MEDS: INSULIN LISPRO 100 UNIT/ML SUBCUT SCH ×4 (09:09→20:39)
[2018-02-12] MEDS: LINACLOTIDE 145 MCG CAPSULE PO SCH (09:10)
[2018-02-12] MEDS: BISACODYL 5 MG TABLET PO SCH (09:11)
[2018-02-12] MEDS: DOCUSATE SODIUM 100 MG CAPSULE PO SCH ×2 (09:11→20:38)
[2018-02-12] MEDS: amLODIPine 2.5 MG TABLET PO SCH (09:19)
[2018-02-12] MEDS: PANTOPRAZOLE 40 MG TABLET PO SCH (09:19)
[2018-02-12] MEDS: hydrALAZINE 25 MG TABLET PO SCH ×2 (09:19→20:38)
[2018-02-12] MEDS: METOPROLOL TARTRATE 25 MG TABLET PO SCH ×2 (09:19→20:38)
[2018-02-12] MEDS: LETROZOLE 2.5 MG TABLET PO SCH (09:19)
[2018-02-12 09:39] LABS: Eosinophils 1 % (0-10); Lymphocytes 2 % (20-55); Platelet Estimate Adequate; Polychromasia Slight; Segmented Neutrophils 97 % (50-85); Total Cells Counted 100
[2018-02-12] MEDS: ENOXAPARIN 30 MG/0.3 ML SYRINGE SUBCUT SCH (20:38)
[2018-02-12] MEDS: ROSUVASTATIN 20 MG TABLET PO SCH (20:38)
[2018-02-12] MEDS: MIRTAZAPINE 15 MG TABLET PO SCH (20:38)
[2018-02-13] MEDS ORDERED: SODIUM CHLORIDE 0.9% 1,000 ML IV PRN (07:40)
[2018-02-13 08:43] VITALS: BP 152/65
[2018-02-13 09:09] LABS: Basophils % 0.4 % (0.0-0.8); Eosinophils # 0.2 10*3/uL (0.0-0.87); Eosinophils % 2.4 % (0.00-10.9); Hematocrit 36.7 VOL% (35.7-47.0); Immature Granulocytes % 0.7 %; Immature Granulocytes Absolute 0.07 #; Lymphocytes # 0.1 10*3/uL (1.4-4.0); Mean Corpuscular HGB Conc 32.7 GM/DL (32-36); Mean Corpuscular Hemoglobin 30 PG (27-34); Mean Corpuscular Volume 91.8 FL (87-102); Mean Platelet Volume 10.9 FL (9.6-12.0); Monocytes # 0.4 10*3/uL (0.11-0.8); Monocytes % 4.1 % (1.7-12.7); Neutrophils # 8.6 10*3/uL (1.4-7.4); Neutrophils % 91.4 % (38.7-73.9); Platelet Count 184 T/CUMM (130-400); Red Cell Distribution Width 14.5 % (9.3-17.3); White Blood Count 9.4 T/CUMM (4-12)
[2018-02-13] MEDS: DOCUSATE SODIUM 100 MG CAPSULE PO SCH (09:12)
[2018-02-13] MEDS: INSULIN LISPRO 100 UNIT/ML SUBCUT SCH ×2 (09:12→12:20)
[2018-02-13] MEDS: LINACLOTIDE 145 MCG CAPSULE PO SCH (09:12)
[2018-02-13] MEDS: BISACODYL 5 MG TABLET PO SCH (09:13)
[2018-02-13] MEDS: amLODIPine 2.5 MG TABLET PO SCH (09:14)
[2018-02-13] MEDS: PANTOPRAZOLE 40 MG TABLET PO SCH (09:14)
[2018-02-13] MEDS: hydrALAZINE 25 MG TABLET PO SCH (09:14)
[2018-02-13] MEDS: METOPROLOL TARTRATE 25 MG TABLET PO SCH (09:14)
[2018-02-13] MEDS: LETROZOLE 2.5 MG TABLET PO SCH (09:14)
[2018-02-13] MEDS: SODIUM BICARB INJ 50 MEQ in DEXTROSE 5% NACL 0.45% 1,000 ML IV SCH (09:15)
[2018-02-13 09:34] LABS: Eosinophils 1 % (0-10); Lymphocytes 1 % (20-55); Segmented Neutrophils 95 % (50-85); Total Cells Counted 100
[2018-02-13 09:35] LABS: Alanine Aminotransferase < 9 U/L (13-56); Albumin 2.2 G/DL (3.4-5.0); Alkaline Phosphatase 65 U/L (45-117); Aspartate Amino Transferase 9 U/L (0-37); Blood Urea Nitrogen 35 MG/DL (7-18); Calcium 6.8 MG/DL (8.5-10.1); Glucose 128 MG/DL (74-106); Hypochromasia 1+; Potassium 3.7 MMOL/L (3.5-5.1); Sodium 143 MMOL/L (136-145); Total Protein 5.3 G/DL (6.4-8.3)
[2018-02-13 09:36] LABS: Microcytosis 1+; Ovalocytes Slight
[2018-02-13 09:37] LABS: Platelet Estimate Adequate
== END 2018-02-13 11:37 | disposition swing bed (61) | DRG 536 ==
LOC: EDUNIT# → N.ED 11:43 → N.EDINP 16:02 → SUATTDRO 16:02 → N.EDINP 18:10 → N.4E 18:46
PROVIDERS: ADMIT Internal Medicine Nephrology; ATTEND Internal Medicine

== ENCOUNTER 2018-02-16 12:18 | Inpatient (IN) ==
[2018-02-16] MEDS ORDERED: NITROGLYCERIN 2% OINT 1 INCH/GM PACK TOP STA (12:45)
[2018-02-16] MEDS ORDERED: ASPIRIN 325 MG TABLET PO STA (12:45)
[2018-02-16] MEDS ORDERED: NITROGLYCERIN SL 0.4 MG TABLET SL PRN (12:45)
[2018-02-16 13:11] LABS: Basophils % 0.4 % (0.0-0.8); Eosinophils # 0.1 10*3/uL (0.0-0.87); Eosinophils % 1.3 % (0.00-10.9); Hematocrit 33.2 VOL% (35.7-47.0); Hemoglobin 10.9 GM/DL (12.0-16.0); Immature Granulocytes % 0.7 %; Immature Granulocytes Absolute 0.06 #; Lymphocytes # 0.1 10*3/uL (1.4-4.0); Lymphocytes % 0.7 % (21.3-54.2); Mean Corpuscular HGB Conc 32.8 GM/DL (32-36); Mean Corpuscular Hemoglobin 31 PG (27-34); Mean Corpuscular Volume 93.5 FL (87-102); Mean Platelet Volume 10.5 FL (9.6-12.0); Monocytes # 0.7 10*3/uL (0.11-0.8); Monocytes % 8.2 % (1.7-12.7); Neutrophils % 88.7 % (38.7-73.9); Platelet Count 178 T/CUMM (130-400); Red Blood Count 3.55 MC/CUMM (3.8-5.5); Red Cell Distribution Width 14.6 % (9.3-17.3); White Blood Count 9.1 T/CUMM (4-12)
[2018-02-16 13:36] LABS: Alanine Aminotransferase 11 U/L (13-56); Albumin 2.2 G/DL (3.4-5.0); Alkaline Phosphatase 119 U/L (45-117); Aspartate Amino Transferase 13 U/L (0-37); Bilirubin,Total < 0.39 MG/DL (0.2-1.0); Blood Urea Nitrogen 42 MG/DL (7-18); Calcium 7.1 MG/DL (8.5-10.1); Glucose 85 MG/DL (74-106); Osmolality,Calculated 284.7 MOS/KG (273-304); Potassium 2.8 MMOL/L (3.5-5.1); Sodium 138 MMOL/L (136-145); Total Protein 5.4 G/DL (6.4-8.3)
[2018-02-16 13:55] LABS: Band Neutrophils 2 % (0-10); Eosinophils 1 % (0-10); Lymphocytes 2 % (20-55); Platelet Estimate Normal; Segmented Neutrophils 89 % (50-85); Total Cells Counted 100
[2018-02-16 13:56] LABS: Hypochromasia Slight
[2018-02-16] MEDS ORDERED: ONDANSETRON 4 MG/2 ML VIAL IV PRN (16:04)
[2018-02-16] MEDS ORDERED: DEXTROSE 50% 25 GM/50 ML SYRINGE IV ONE ×2 (16:07→18:41)
[2018-02-16] MEDS ORDERED: DEXTROSE 50% 25 GM/50 ML VIAL IV STA (16:27)
[2018-02-16] MEDS ORDERED: ACETAMINOPHEN 325 MG TABLET PO PRN (16:45)
[2018-02-16] MEDS ORDERED: guaiFENesin 200 MG/10 ML UDCUP PO PRN (16:45)
[2018-02-16] MEDS ORDERED: LOPERAMIDE 2 MG CAPSULE PO PRN (16:45)
[2018-02-16] MEDS ORDERED: ALPRAZolam 0.25 MG TABLET PO PRN (16:45)
[2018-02-16] MEDS ORDERED: chlorproMAZINE 25 MG TABLET PO PRN (16:45)
[2018-02-16] MEDS ORDERED: POLYETHYLENE GLYCOL POWDER 17 GM PACK PO PRN (16:45)
[2018-02-16] MEDS ORDERED: ALUMINUM/MAGNES/SIMETH MAX STR 30 ML UDCUP PO PRN (16:45)
[2018-02-16] MEDS ORDERED: MECLIZINE 25 MG TABLET PO PRN (16:45)
[2018-02-16 17:59] LABS: Apearance,Urine CLOUDY (Clear); Bacteria,Urine Few /HPF (Few); Bilirubin,Urine Negative (Negative); Blood, Urine Small mg/dL (Negative); Glucose,Urine (UA) Negative (Negative); Ketones,Urine Negative (Negative); Nitrite,Urine Negative (Negative); Protein,Urine 100 MG/DL; Urine Color Yellow (Yellow); Urine Specific Gravity 1.008 (1.001-1.035); Urine Urobilinogen < 2.0 EU/DL (0.2-1.0); WBC,Urine 201 /HPF (0-6)
[2018-02-16] MEDS: DEXTROSE 5% 1,000 ML IV SCH (19:07)
[2018-02-16] MEDS: DEXTROSE 50% 25 GM/50 ML SYRINGE IV PRN (19:14)
[2018-02-16] MEDS: SODIUM CHLORIDE 1 GM TABLET PO SCH (21:10)
[2018-02-16] MEDS: hydrALAZINE 25 MG TABLET PO SCH (21:10)
[2018-02-16] MEDS: ROSUVASTATIN 20 MG TABLET PO SCH (21:10)
[2018-02-16] MEDS: MIRTAZAPINE 15 MG TABLET PO SCH (21:10)
[2018-02-16] MEDS: FUROSEMIDE 20 MG/2 ML VIAL IV SCH ×2 (21:10→21:23)
[2018-02-16] MEDS ORDERED: POTASSIUM CHLORIDE 20 MEQ TABLET PO PRN (21:13)
[2018-02-16] MEDS ORDERED: POTASSIUM CHLORIDE RIDER 10 MEQ in PREMIX 1 EACH IV PRN (21:24)
[2018-02-16] MEDS: POTASSIUM CHLORIDE RIDER 20 MEQ in PREMIX 1 EACH IV PRN (22:18)
[2018-02-16] MEDS ORDERED: METOPROLOL TARTRATE 5 MG/5 ML VIAL IV ONE ×2 (22:49→23:16)
[2018-02-16] MEDS ORDERED: ACETAMINOPHEN 500 MG TABLET PO PRN (23:15)
[2018-02-17] MEDS: POTASSIUM CHLORIDE RIDER 20 MEQ in PREMIX 1 EACH IV PRN (00:18)
[2018-02-17] MEDS: DEXTROSE 50% 25 GM/50 ML SYRINGE IV PRN (02:02)
[2018-02-17 04:47] LABS: Basophils % 0.4 % (0.0-0.8); Eosinophils # 0.1 10*3/uL (0.0-0.87); Eosinophils % 1.1 % (0.00-10.9); Hematocrit 29.5 VOL% (35.7-47.0); Hemoglobin 9.7 GM/DL (12.0-16.0); Immature Granulocytes % 0.5 %; Immature Granulocytes Absolute 0.03 #; Lymphocytes % 0.4 % (21.3-54.2); Mean Corpuscular HGB Conc 32.9 GM/DL (32-36); Mean Corpuscular Hemoglobin 30 PG (27-34); Mean Corpuscular Volume 92.5 FL (87-102); Mean Platelet Volume 10.7 FL (9.6-12.0); Monocytes # 0.1 10*3/uL (0.11-0.8); Monocytes % 1.2 % (1.7-12.7); Neutrophils # 5.5 10*3/uL (1.4-7.4); Neutrophils % 96.4 % (38.7-73.9); Platelet Count 145 T/CUMM (130-400); Red Blood Count 3.19 MC/CUMM (3.8-5.5); Red Cell Distribution Width 14.6 % (9.3-17.3); White Blood Count 5.7 T/CUMM (4-12)
[2018-02-17] MEDS: DEXTROSE 5% 1,000 ML IV SCH ×2 (05:15→15:50)
[2018-02-17 05:16] LABS: Band Neutrophils 9 % (0-10); Eosinophils 2 % (0-10); Hypochromasia Slight; Lymphocytes 1 % (20-55); Platelet Estimate Adequate; Segmented Neutrophils 87 % (50-85); Total Cells Counted 100
[2018-02-17 05:18] LABS: Calcium 7.1 MG/DL (8.5-10.1); Potassium 4.1 MMOL/L (3.5-5.1); Total Protein 4.8 G/DL (6.4-8.3)
[2018-02-17] MEDS ORDERED: MAGNESIUM SULF RIDER 2 GM in PREMIX 1 EACH IV PRN (05:21)
[2018-02-17] MEDS ORDERED: MAGNESIUM SULF RIDER 4 GM in PREMIX 1 EACH IV PRN (05:21)
[2018-02-17] MEDS ORDERED: MAGNESIUM SULF RIDER 50 ML IV ONE (05:24)
[2018-02-17] MEDS: amLODIPine 2.5 MG TABLET PO SCH (10:05)
[2018-02-17] MEDS: predniSONE 5 MG TABLET PO SCH (10:05)
[2018-02-17] MEDS: LETROZOLE 2.5 MG TABLET PO SCH (10:05)
[2018-02-17] MEDS: BISACODYL 5 MG TABLET PO SCH (10:05)
[2018-02-17] MEDS: METOPROLOL TARTRATE 25 MG TABLET PO SCH ×2 (10:05→21:56)
[2018-02-17] MEDS: PANTOPRAZOLE 40 MG TABLET PO SCH (10:05)
[2018-02-17] MEDS: hydrALAZINE 25 MG TABLET PO SCH ×2 (10:05→21:58)
[2018-02-17] MEDS: SODIUM CHLORIDE 1 GM TABLET PO SCH ×2 (10:05→21:56)
[2018-02-17] MEDS: ASPIRIN EC 81 MG TABLET PO SCH (10:06)
[2018-02-17] MEDS: FUROSEMIDE 20 MG/2 ML VIAL IV SCH (10:06)
[2018-02-17] MEDS: cefTRIAXone 1,000 MG in SYRINGE 1 EACH IV SCH (10:06)
[2018-02-17] MEDS: LINACLOTIDE 145 MCG CAPSULE PO SCH (10:06)
[2018-02-17] MEDS: ROSUVASTATIN 20 MG TABLET PO SCH (21:56)
[2018-02-17] MEDS: MIRTAZAPINE 15 MG TABLET PO SCH (21:58)
[2018-02-18] MEDS: DEXTROSE 5% 1,000 ML IV SCH (05:00)
[2018-02-18 05:49] LABS: Basophils % 0.1 % (0.0-0.8); Eosinophils # 0.2 10*3/uL (0.0-0.87); Hematocrit 23.2 VOL% (35.7-47.0); Hemoglobin 7.6 GM/DL (12.0-16.0); Immature Granulocytes % 0.5 %; Immature Granulocytes Absolute 0.06 #; Lymphocytes % 17.1 % (21.3-54.2); Mean Corpuscular HGB Conc 32.8 GM/DL (32-36); Mean Corpuscular Hemoglobin 31 PG (27-34); Mean Corpuscular Volume 93.5 FL (87-102); Mean Platelet Volume 11.2 FL (9.6-12.0); Monocytes # 0.8 10*3/uL (0.11-0.8); Monocytes % 6.9 % (1.7-12.7); Neutrophils # 8.8 10*3/uL (1.4-7.4); Neutrophils % 73.4 % (38.7-73.9); Platelet Count 109 T/CUMM (130-400); Red Blood Count 2.48 MC/CUMM (3.8-5.5); Red Cell Distribution Width 12.9 % (9.3-17.3)
[2018-02-18 06:13] LABS: Albumin 2.9 G/DL (3.4-5.0); Bilirubin,Total 0.7 MG/DL (0.2-1.0); Calcium 8.5 MG/DL (8.5-10.1); Osmolality,Calculated 274.2 MOS/KG (273-304); Potassium 4.4 MMOL/L (3.5-5.1); Total Protein 5.9 G/DL (6.4-8.3)
[2018-02-18] MEDS ORDERED: SODIUM CHLORIDE 0.9% 1,000 ML IV PRN (08:08)
[2018-02-18 08:36] LABS: Basophils % 0.5 % (0.0-0.8); Eosinophils # 0.2 10*3/uL (0.0-0.87); Eosinophils % 2.8 % (0.00-10.9); Hematocrit 33.2 VOL% (35.7-47.0); Immature Granulocytes % 0.4 %; Immature Granulocytes Absolute 0.03 #; Lymphocytes # 0.1 10*3/uL (1.4-4.0); Mean Corpuscular HGB Conc 33.1 GM/DL (32-36); Mean Corpuscular Hemoglobin 31 PG (27-34); Mean Corpuscular Volume 94.6 FL (87-102); Mean Platelet Volume 10.4 FL (9.6-12.0); Monocytes # 0.8 10*3/uL (0.11-0.8); Monocytes % 10.3 % (1.7-12.7); Neutrophils # 6.6 10*3/uL (1.4-7.4); Platelet Count 170 T/CUMM (130-400); Red Blood Count 3.51 MC/CUMM (3.8-5.5); Red Cell Distribution Width 14.6 % (9.3-17.3); White Blood Count 7.7 T/CUMM (4-12)
[2018-02-18] MEDS: FUROSEMIDE 20 MG/2 ML VIAL IV SCH (08:41)
[2018-02-18] MEDS: cefTRIAXone 1,000 MG in SYRINGE 1 EACH IV SCH (08:41)
[2018-02-18] MEDS: LINACLOTIDE 145 MCG CAPSULE PO SCH (08:42)
[2018-02-18] MEDS: hydrALAZINE 25 MG TABLET PO SCH ×2 (08:42→21:17)
[2018-02-18] MEDS: LETROZOLE 2.5 MG TABLET PO SCH (08:42)
[2018-02-18] MEDS: SUCRALFATE 1 GM/10 ML UDCUP PO SCH ×4 (08:42→21:17)
[2018-02-18] MEDS: SODIUM CHLORIDE 1 GM TABLET PO SCH ×2 (08:43→21:21)
[2018-02-18] MEDS: METOPROLOL TARTRATE 25 MG TABLET PO SCH ×2 (08:43→21:17)
[2018-02-18] MEDS: PANTOPRAZOLE 40 MG TABLET PO SCH (08:43)
[2018-02-18] MEDS: amLODIPine 2.5 MG TABLET PO SCH (08:44)
[2018-02-18] MEDS: predniSONE 5 MG TABLET PO SCH (08:45)
[2018-02-18] MEDS: ASPIRIN EC 81 MG TABLET PO SCH (08:45)
[2018-02-18] MEDS: BISACODYL 5 MG TABLET PO SCH (08:45)
[2018-02-18 08:55] LABS: Band Neutrophils 1 % (0-10); Eosinophils 3 % (0-10); Hypochromasia 1+; Lymphocytes 1 % (20-55); Platelet Estimate Adequate; Segmented Neutrophils 90 % (50-85); Total Cells Counted 100
[2018-02-18 09:02] LABS: Calcium 7.6 MG/DL (8.5-10.1); Osmolality,Calculated 284.1 MOS/KG (273-304)
[2018-02-18 11:49] LABS: Hematocrit 32.5 VOL% (35.7-47.0); Hemoglobin 10.3 GM/DL (12.0-16.0)
[2018-02-18] MEDS: INSULIN REGULAR 100 UNIT/ML SUBCUT SCH ×2 (17:22→21:17)
[2018-02-18] MEDS ORDERED: LEVOFLOXACIN INJ 500 MG in PREMIX 1 EACH IV SCH (17:30)
[2018-02-18] MEDS: ROSUVASTATIN 20 MG TABLET PO SCH (21:16)
[2018-02-18] MEDS: MIRTAZAPINE 15 MG TABLET PO SCH (21:22)
[2018-02-19 04:31] LABS: Basophils % 0.4 % (0.0-0.8); Eosinophils # 0.2 10*3/uL (0.0-0.87); Eosinophils % 2.9 % (0.00-10.9); Hematocrit 30.7 VOL% (35.7-47.0); Hemoglobin 9.7 GM/DL (12.0-16.0); Immature Granulocytes % 0.7 %; Immature Granulocytes Absolute 0.05 #; Lymphocytes # 0.1 10*3/uL (1.4-4.0); Lymphocytes % 1.7 % (21.3-54.2); Mean Corpuscular HGB Conc 31.6 GM/DL (32-36); Mean Corpuscular Hemoglobin 30 PG (27-34); Mean Corpuscular Volume 95.3 FL (87-102); Mean Platelet Volume 10.9 FL (9.6-12.0); Monocytes % 12.8 % (1.7-12.7); Neutrophils # 6.1 10*3/uL (1.4-7.4); Neutrophils % 81.5 % (38.7-73.9); Platelet Count 165 T/CUMM (130-400); Red Blood Count 3.22 MC/CUMM (3.8-5.5); Red Cell Distribution Width 14.4 % (9.3-17.3); White Blood Count 7.5 T/CUMM (4-12)
[2018-02-19 05:02] LABS: Bilirubin,Total 0.9 MG/DL (0.2-1.0); Calcium 7.3 MG/DL (8.5-10.1); Osmolality,Calculated 293.1 MOS/KG (273-304); Potassium 4.5 MMOL/L (3.5-5.1); Total Protein 4.9 G/DL (6.4-8.3)
[2018-02-19 05:11] LABS: Eosinophils 1 % (0-10); Lymphocytes 3 % (20-55); Platelet Estimate Normal; Segmented Neutrophils 87 % (50-85); Total Cells Counted 100
[2018-02-19 05:12] LABS: Hypochromasia 2+
[2018-02-19] MEDS: INSULIN REGULAR 100 UNIT/ML SUBCUT SCH ×4 (08:58→21:12)
[2018-02-19] MEDS: LINACLOTIDE 145 MCG CAPSULE PO SCH (09:00)
[2018-02-19] MEDS: SUCRALFATE 1 GM/10 ML UDCUP PO SCH ×4 (09:00→21:11)
[2018-02-19] MEDS: FUROSEMIDE 20 MG/2 ML VIAL IV SCH (09:00)
[2018-02-19] MEDS: hydrALAZINE 25 MG TABLET PO SCH ×2 (09:01→21:12)
[2018-02-19] MEDS: ASPIRIN EC 81 MG TABLET PO SCH (09:01)
[2018-02-19] MEDS: amLODIPine 2.5 MG TABLET PO SCH (09:01)
[2018-02-19] MEDS: METOPROLOL TARTRATE 25 MG TABLET PO SCH ×2 (09:01→21:12)
[2018-02-19] MEDS: LETROZOLE 2.5 MG TABLET PO SCH (09:01)
[2018-02-19] MEDS: predniSONE 5 MG TABLET PO SCH (09:01)
[2018-02-19] MEDS: PANTOPRAZOLE 40 MG TABLET PO SCH (09:01)
[2018-02-19] MEDS: SODIUM CHLORIDE 1 GM TABLET PO SCH ×2 (09:01→21:12)
[2018-02-19] MEDS: BISACODYL 5 MG TABLET PO SCH (09:05)
[2018-02-19] MEDS: SODIUM CHLORIDE 0.9% 1,000 ML IV SCH (09:45)
[2018-02-19] MEDS: MIRTAZAPINE 15 MG TABLET PO SCH (21:12)
[2018-02-19] MEDS: ROSUVASTATIN 20 MG TABLET PO SCH (21:12)
[2018-02-20 04:36] LABS: Basophils % 0.4 % (0.0-0.8); Eosinophils # 0.2 10*3/uL (0.0-0.87); Eosinophils % 3.4 % (0.00-10.9); Hematocrit 30.8 VOL% (35.7-47.0); Hemoglobin 9.9 GM/DL (12.0-16.0); Immature Granulocytes % 0.6 %; Immature Granulocytes Absolute 0.04 #; Lymphocytes # 0.2 10*3/uL (1.4-4.0); Lymphocytes % 2.2 % (21.3-54.2); Mean Corpuscular HGB Conc 32.1 GM/DL (32-36); Mean Corpuscular Hemoglobin 30 PG (27-34); Mean Corpuscular Volume 94.5 FL (87-102); Mean Platelet Volume 10.5 FL (9.6-12.0); Monocytes # 0.9 10*3/uL (0.11-0.8); Monocytes % 13.5 % (1.7-12.7); Neutrophils # 5.4 10*3/uL (1.4-7.4); Neutrophils % 79.9 % (38.7-73.9); Platelet Count 171 T/CUMM (130-400); Red Blood Count 3.26 MC/CUMM (3.8-5.5); Red Cell Distribution Width 14.1 % (9.3-17.3); White Blood Count 6.7 T/CUMM (4-12)
[2018-02-20 04:50] LABS: Albumin 2.2 G/DL (3.4-5.0); Bilirubin,Total 0.4 MG/DL (0.2-1.0); Calcium 7.7 MG/DL (8.5-10.1); Osmolality,Calculated 289.4 MOS/KG (273-304); Potassium 3.9 MMOL/L (3.5-5.1); Total Protein 5.3 G/DL (6.4-8.3)
[2018-02-20 05:02] LABS: Hypochromasia 1+; Lymphocytes 3 % (20-55); Ovalocytes Slight; Platelet Estimate Adequate; Segmented Neutrophils 85 % (50-85); Total Cells Counted 100
[2018-02-20] MEDS: SODIUM CHLORIDE 0.9% 1,000 ML IV SCH (05:45)
[2018-02-20] MEDS: hydrALAZINE 25 MG TABLET PO SCH (08:00)
[2018-02-20] MEDS: PANTOPRAZOLE 40 MG TABLET PO SCH (08:00)
[2018-02-20] MEDS: predniSONE 5 MG TABLET PO SCH (08:01)
[2018-02-20] MEDS: METOPROLOL TARTRATE 25 MG TABLET PO SCH (08:01)
[2018-02-20] MEDS: amLODIPine 2.5 MG TABLET PO SCH (08:01)
[2018-02-20] MEDS: SODIUM CHLORIDE 1 GM TABLET PO SCH (08:01)
[2018-02-20] MEDS: BISACODYL 5 MG TABLET PO SCH (08:01)
[2018-02-20] MEDS: ASPIRIN EC 81 MG TABLET PO SCH (08:01)
[2018-02-20] MEDS: LETROZOLE 2.5 MG TABLET PO SCH (08:01)
[2018-02-20] MEDS: SUCRALFATE 1 GM/10 ML UDCUP PO SCH ×3 (08:01→16:12)
[2018-02-20] MEDS: INSULIN REGULAR 100 UNIT/ML SUBCUT SCH ×3 (08:08→16:20)
[2018-02-20] MEDS: LINACLOTIDE 145 MCG CAPSULE PO SCH (09:06)
[2018-02-20 16:07] VITALS: BP 160/72
== END 2018-02-20 16:35 | DRG 638 ==
LOC: EDUNIT# → EDBD → N.EDINP 12:18 → N.ED 12:18 → N.TELES 17:04 → SUATTDRO 02-17 14:25
PROVIDERS: ADMIT Internal Medicine; ATTEND Hospitalist

== ENCOUNTER 2018-03-08 13:54 | Inpatient (IN) ==
[2018-03-08 14:32] LABS: Basophils # 0.1 10*3/uL (0.0-0.2); Basophils % 0.5 % (0.0-0.8); Eosinophils # 0.1 10*3/uL (0.0-0.87); Eosinophils % 0.9 % (0.00-10.9); Hematocrit 29.3 VOL% (35.7-47.0); Hemoglobin 10.1 GM/DL (12.0-16.0); Immature Granulocytes % 0.6 %; Immature Granulocytes Absolute 0.06 #; Lymphocytes # 0.3 10*3/uL (1.4-4.0); Lymphocytes % 2.7 % (21.3-54.2); Mean Corpuscular HGB Conc 34.5 GM/DL (32-36); Mean Corpuscular Hemoglobin 31 PG (27-34); Mean Corpuscular Volume 89.1 FL (87-102); Mean Platelet Volume 11.3 FL (9.6-12.0); Monocytes # 0.8 10*3/uL (0.11-0.8); Neutrophils # 8.2 10*3/uL (1.4-7.4); Neutrophils % 87.3 % (38.7-73.9); Platelet Count 101 T/CUMM (130-400); Red Blood Count 3.29 MC/CUMM (3.8-5.5); Red Cell Distribution Width 15.9 % (9.3-17.3); White Blood Count 9.4 T/CUMM (4-12)
[2018-03-08 14:46] LABS: PT Patient Result 10.5 SECS; Partial Thromboplastin Time 28.1 SECS (0-40)
[2018-03-08 14:53] LABS: Calcium 7.9 MG/DL (8.5-10.1); Osmolality,Calculated 299.7 MOS/KG (273-304); Potassium 2.6 MMOL/L (3.5-5.1)
[2018-03-08 15:06] LABS: Eosinophils 2 % (0-10); Lymphocytes 3 % (20-55); Segmented Neutrophils 90 % (50-85); Total Cells Counted 100
[2018-03-08 15:07] LABS: Elliptocytes Few; Platelet Estimate Adequate
[2018-03-08] MEDS ORDERED: ONDANSETRON 4 MG/2 ML VIAL IV PRN (17:14)
[2018-03-08] MEDS ORDERED: ACETAMINOPHEN 325 MG TABLET PO PRN ×2 (17:14→17:17)
[2018-03-08] MEDS ORDERED: ALUMINUM/MAGNES/SIMETH MAX STR 30 ML UDCUP PO PRN (17:17)
[2018-03-08] MEDS ORDERED: LOPERAMIDE 2 MG CAPSULE PO PRN (17:17)
[2018-03-08] MEDS ORDERED: guaiFENesin 200 MG/10 ML UDCUP PO PRN (17:17)
[2018-03-08] MEDS ORDERED: ALPRAZolam 0.25 MG TABLET PO PRN (17:17)
[2018-03-08] MEDS ORDERED: POLYETHYLENE GLYCOL POWDER 17 GM PACK PO PRN (17:17)
[2018-03-08] MEDS ORDERED: MECLIZINE 25 MG TABLET PO PRN (17:17)
[2018-03-08] MEDS ORDERED: chlorproMAZINE 25 MG TABLET PO PRN (17:17)
[2018-03-08] MEDS ORDERED: DEXTROSE 50% 25 GM/50 ML SYRINGE IV PRN (17:38)
[2018-03-08] MEDS ORDERED: GLUCAGON 1 MG VIAL IM PRN (17:38)
[2018-03-08 18:06] LABS: Apearance,Urine Slightly Hazy (Clear); Bacteria,Urine Moderate /HPF (Few); Bilirubin,Urine Negative (Negative); Blood, Urine Small mg/dL (Negative); Glucose,Urine (UA) Negative (Negative); Ketones,Urine Negative (Negative); Nitrite,Urine Negative (Negative); Protein,Urine 30 MG/DL; RBC,Urine 2 /HPF (0-4); Urine Color Yellow (Yellow); Urine Specific Gravity 1.011 (1.001-1.035); Urine Urobilinogen < 2.0 EU/DL (0.2-1.0); WBC,Urine 1 /HPF (0-6)
[2018-03-08] MEDS: INSULIN LISPRO 100 UNIT/ML SUBCUT SCH (19:19)
[2018-03-08] MEDS: HEPARIN DRIP 25,000 UNITS/500 ML PREMIX IV SCH (20:30)
[2018-03-08] MEDS: MIRTAZAPINE 15 MG TABLET PO SCH (20:51)
[2018-03-08] MEDS: ROSUVASTATIN 20 MG TABLET PO SCH (20:51)
[2018-03-08] MEDS: SODIUM CHLORIDE 1 GM TABLET PO SCH (20:51)
[2018-03-08] MEDS: hydrALAZINE 25 MG TABLET PO SCH (20:51)
[2018-03-09 03:46] LABS: Basophils % 0.4 % (0.0-0.8); Eosinophils # 0.1 10*3/uL (0.0-0.87); Eosinophils % 1.7 % (0.00-10.9); Hematocrit 25.2 VOL% (35.7-47.0); Hemoglobin 8.6 GM/DL (12.0-16.0); Immature Granulocytes % 0.8 %; Immature Granulocytes Absolute 0.06 #; Lymphocytes # 0.2 10*3/uL (1.4-4.0); Mean Corpuscular HGB Conc 34.1 GM/DL (32-36); Mean Corpuscular Hemoglobin 30 PG (27-34); Mean Corpuscular Volume 88.7 FL (87-102); Mean Platelet Volume 10.9 FL (9.6-12.0); Monocytes # 0.7 10*3/uL (0.11-0.8); Monocytes % 8.4 % (1.7-12.7); Neutrophils # 6.6 10*3/uL (1.4-7.4); Neutrophils % 85.7 % (38.7-73.9); Red Blood Count 2.84 MC/CUMM (3.8-5.5); Red Cell Distribution Width 15.9 % (9.3-17.3); White Blood Count 7.7 T/CUMM (4-12)
[2018-03-09 03:47] LABS: Platelet Count 93 T/CUMM (130-400)
[2018-03-09 03:54] LABS: PT Patient Result 11.2 SECS
[2018-03-09 04:04] LABS: Partial Thromboplastin Time 82.5 SECS (0-40)
[2018-03-09 04:11] LABS: Albumin 2.7 G/DL (3.4-5.0); Bilirubin,Total 0.7 MG/DL (0.2-1.0); Calcium 7.3 MG/DL (8.5-10.1); Osmolality,Calculated 306.1 MOS/KG (273-304); Potassium 2.8 MMOL/L (3.5-5.1); Thyroid Stimulating Hormone 0.628 uIU/ml (0.358-3.74); Total Protein 6.1 G/DL (6.4-8.3)
[2018-03-09 04:29] LABS: Burr Cells 1+; Platelet Estimate Decreased
[2018-03-09 04:30] LABS: Elliptocytes 1+
[2018-03-09 04:31] LABS: Hypochromasia Slight
[2018-03-09] MEDS: LINACLOTIDE 145 MCG CAPSULE PO SCH (05:34)
[2018-03-09] MEDS: POTASSIUM CHLORIDE 20 MEQ TABLET PO PRN (06:11)
[2018-03-09] MEDS: INSULIN LISPRO 100 UNIT/ML SUBCUT SCH ×4 (07:33→21:53)
[2018-03-09] MEDS ORDERED: MAGNESIUM SULF RIDER 4 GM in PREMIX 1 EACH IV ONE (08:00)
[2018-03-09] MEDS ORDERED: MAGNESIUM SULF INJ 4 GM, POTASSIUM CHLORIDE INJ 50 MEQ in SODIUM CHLORIDE 0.9% 500 ML IV ONE (08:00)
[2018-03-09] MEDS: SODIUM CHLORIDE 1 GM TABLET PO SCH (09:37)
[2018-03-09] MEDS: MULTIVITAMIN (CENTRUM) TABLET PO SCH (09:37)
[2018-03-09] MEDS: MEGESTROL 400 MG/10 ML UDCUP PO SCH (09:37)
[2018-03-09] MEDS: ASPIRIN EC 81 MG TABLET PO SCH (09:37)
[2018-03-09] MEDS: PANTOPRAZOLE 40 MG TABLET PO SCH (09:37)
[2018-03-09] MEDS: CALCIUM (CARBONATE)/VITAMIN D 600 MG-400 UNIT TABLET PO SCH (09:38)
[2018-03-09] MEDS: hydrALAZINE 25 MG TABLET PO SCH ×2 (10:35→21:46)
[2018-03-09] MEDS: amLODIPine 2.5 MG TABLET PO SCH (10:35)
[2018-03-09] MEDS: LETROZOLE 2.5 MG TABLET PO SCH (11:23)
[2018-03-09] MEDS: SODIUM CHLORIDE 0.9% 1,000 ML IV SCH (15:07)
[2018-03-09] MEDS: WARFARIN 5 MG TABLET PO SCH (19:03)
[2018-03-09] MEDS: ROSUVASTATIN 20 MG TABLET PO SCH (21:45)
[2018-03-09] MEDS: MIRTAZAPINE 15 MG TABLET PO SCH (21:46)
[2018-03-09] MEDS: HEPARIN DRIP 25,000 UNITS/500 ML PREMIX IV SCH (22:47)
[2018-03-10 05:17] LABS: PT Patient Result 10.4 SECS
[2018-03-10 05:18] LABS: Basophils % 0.4 % (0.0-0.8); Eosinophils # 0.2 10*3/uL (0.0-0.87); Hematocrit 22.6 VOL% (35.7-47.0); Hemoglobin 7.6 GM/DL (12.0-16.0); Immature Granulocytes Absolute 0.05 #; Lymphocytes # 0.2 10*3/uL (1.4-4.0); Lymphocytes % 3.6 % (21.3-54.2); Mean Corpuscular HGB Conc 33.6 GM/DL (32-36); Mean Corpuscular Hemoglobin 31 PG (27-34); Mean Corpuscular Volume 90.8 FL (87-102); Mean Platelet Volume 11.3 FL (9.6-12.0); Monocytes # 0.4 10*3/uL (0.11-0.8); Monocytes % 8.2 % (1.7-12.7); Neutrophils # 4.4 10*3/uL (1.4-7.4); Neutrophils % 83.8 % (38.7-73.9); Red Blood Count 2.49 MC/CUMM (3.8-5.5); Red Cell Distribution Width 15.9 % (9.3-17.3)
[2018-03-10 05:21] LABS: Platelet Count 99 T/CUMM (130-400); White Blood Count 5.3 T/CUMM (4-12)
[2018-03-10 05:22] LABS: Alanine Aminotransferase 10 U/L (13-56); Albumin 2.1 G/DL (3.4-5.0); Alkaline Phosphatase 50 U/L (45-117); Aspartate Amino Transferase 9 U/L (0-37); Bilirubin,Total < 0.39 MG/DL (0.2-1.0); Blood Urea Nitrogen 65 MG/DL (7-18); Calcium 7.3 MG/DL (8.5-10.1); Glucose 99 MG/DL (74-106); Potassium 3.5 MMOL/L (3.5-5.1); Sodium 143 MMOL/L (136-145); Total Protein 5.1 G/DL (6.4-8.3)
[2018-03-10 05:43] LABS: Eosinophils 3 % (0-10); Hypochromasia Slight; Lymphocytes 1 % (20-55); Ovalocytes Slight; Platelet Estimate Decreased; Segmented Neutrophils 92 % (50-85); Total Cells Counted 100
[2018-03-10] MEDS: SODIUM CHLORIDE 0.9% 1,000 ML IV SCH ×2 (06:21→18:10)
[2018-03-10] MEDS: LINACLOTIDE 145 MCG CAPSULE PO SCH (06:22)
[2018-03-10] MEDS: amLODIPine 2.5 MG TABLET PO SCH (08:26)
[2018-03-10] MEDS: hydrALAZINE 25 MG TABLET PO SCH ×2 (08:26→22:04)
[2018-03-10] MEDS: MULTIVITAMIN (CENTRUM) TABLET PO SCH (08:26)
[2018-03-10] MEDS: LETROZOLE 2.5 MG TABLET PO SCH (08:26)
[2018-03-10] MEDS: BISACODYL 5 MG TABLET PO SCH (08:26)
[2018-03-10] MEDS: ASPIRIN EC 81 MG TABLET PO SCH (08:26)
[2018-03-10] MEDS: MEGESTROL 400 MG/10 ML UDCUP PO SCH (08:27)
[2018-03-10] MEDS: INSULIN LISPRO 100 UNIT/ML SUBCUT SCH ×4 (08:27→22:04)
[2018-03-10] MEDS: PANTOPRAZOLE 40 MG TABLET PO SCH (08:37)
[2018-03-10] MEDS: CALCIUM (CARBONATE)/VITAMIN D 600 MG-400 UNIT TABLET PO SCH (08:37)
[2018-03-10] MEDS ORDERED: SODIUM CHLORIDE 0.9% 1,000 ML IV PRN (09:23)
[2018-03-10] MEDS: WARFARIN 5 MG TABLET PO SCH (17:13)
[2018-03-10] MEDS: SODIUM CHLORIDE 23.4% CONC INJ 38.5 MEQ, SODIUM BICARB INJ 100 MEQ in STERILE WATER INJ... IV SCH (17:13)
[2018-03-10] MEDS: ROSUVASTATIN 20 MG TABLET PO SCH (22:04)
[2018-03-10] MEDS: MIRTAZAPINE 15 MG TABLET PO SCH (22:04)
[2018-03-10] MEDS: SODIUM BICARBONATE 650 MG TABLET PO SCH (22:04)
[2018-03-11 05:38] LABS: Basophils % 0.4 % (0.0-0.8); Eosinophils # 0.2 10*3/uL (0.0-0.87); Eosinophils % 3.2 % (0.00-10.9); Hematocrit 32.1 VOL% (35.7-47.0); Hemoglobin 10.7 GM/DL (12.0-16.0); Immature Granulocytes % 1.4 %; Immature Granulocytes Absolute 0.08 #; Lymphocytes # 0.2 10*3/uL (1.4-4.0); Lymphocytes % 3.8 % (21.3-54.2); Mean Corpuscular HGB Conc 33.3 GM/DL (32-36); Mean Corpuscular Hemoglobin 28 PG (27-34); Mean Corpuscular Volume 84.5 FL (87-102); Mean Platelet Volume 10.9 FL (9.6-12.0); Monocytes # 0.5 10*3/uL (0.11-0.8); Monocytes % 8.6 % (1.7-12.7); Neutrophils # 4.6 10*3/uL (1.4-7.4); Neutrophils % 82.6 % (38.7-73.9); Platelet Count 107 T/CUMM (130-400); Red Cell Distribution Width 16.8 % (9.3-17.3); White Blood Count 5.6 T/CUMM (4-12)
[2018-03-11 05:45] LABS: INR 1.2; PT Patient Result 13.3 SECS
[2018-03-11 05:52] LABS: Partial Thromboplastin Time 82.8 SECS (0-40)
[2018-03-11 05:57] LABS: Albumin 2.3 G/DL (3.4-5.0); Bilirubin,Total 0.6 MG/DL (0.2-1.0); Calcium 8.1 MG/DL (8.5-10.1); Osmolality,Calculated 297.4 MOS/KG (273-304); Potassium 3.3 MMOL/L (3.5-5.1); Total Protein 5.4 G/DL (6.4-8.3)
[2018-03-11] MEDS: LINACLOTIDE 145 MCG CAPSULE PO SCH (06:59)
[2018-03-11] MEDS: HEPARIN DRIP 25,000 UNITS/500 ML PREMIX IV SCH (06:59)
[2018-03-11 07:24] LABS: Band Neutrophils 1 % (0-10); Lymphocytes 1 % (20-55); Segmented Neutrophils 93 % (50-85); Total Cells Counted 100
[2018-03-11 07:25] LABS: Anisocytosis 1+; Ovalocytes Few; Platelet Estimate Adequate; Tear Drop Cells 1+
[2018-03-11 08:40] LABS: Hematocrit 36.4 VOL% (35.7-47.0); Hemoglobin 12.2 GM/DL (12.0-16.0)
[2018-03-11] MEDS: INSULIN LISPRO 100 UNIT/ML SUBCUT SCH ×4 (09:19→21:39)
[2018-03-11] MEDS: SODIUM CHLORIDE 23.4% CONC INJ 38.5 MEQ, SODIUM BICARB INJ 100 MEQ in STERILE WATER INJ... IV SCH (09:20)
[2018-03-11] MEDS: SODIUM BICARBONATE 650 MG TABLET PO SCH ×2 (09:21→21:06)
[2018-03-11] MEDS: amLODIPine 2.5 MG TABLET PO SCH (09:21)
[2018-03-11] MEDS: CALCIUM (CARBONATE)/VITAMIN D 600 MG-400 UNIT TABLET PO SCH (09:21)
[2018-03-11] MEDS: hydrALAZINE 25 MG TABLET PO SCH ×2 (09:21→21:06)
[2018-03-11] MEDS: PANTOPRAZOLE 40 MG TABLET PO SCH (09:21)
[2018-03-11] MEDS: MULTIVITAMIN (CENTRUM) TABLET PO SCH (09:21)
[2018-03-11] MEDS: LETROZOLE 2.5 MG TABLET PO SCH (09:21)
[2018-03-11] MEDS: MEGESTROL 400 MG/10 ML UDCUP PO SCH (09:21)
[2018-03-11] MEDS: POTASSIUM CHLORIDE 20 MEQ TABLET PO PRN ×3 (09:21→15:59)
[2018-03-11] MEDS: ASPIRIN EC 81 MG TABLET PO SCH (10:25)
[2018-03-11] MEDS: ALBUMIN 25% 25 GM in PREMIX 1 EACH IV SCH ×2 (14:20→21:09)
[2018-03-11] MEDS: SODIUM BICARB INJ 100 MEQ, POTASSIUM CHLORIDE INJ 20 MEQ in DEXTROSE 5% 1,000 ML IV SCH (14:21)
[2018-03-11] MEDS: WARFARIN 5 MG TABLET PO SCH (18:25)
[2018-03-11] MEDS: ROSUVASTATIN 20 MG TABLET PO SCH (21:05)
[2018-03-11] MEDS: MIRTAZAPINE 15 MG TABLET PO SCH (21:05)
[2018-03-12] MEDS: SODIUM BICARB INJ 100 MEQ, POTASSIUM CHLORIDE INJ 20 MEQ in DEXTROSE 5% 1,000 ML IV SCH ×2 (02:04→04:30)
[2018-03-12] MEDS: HEPARIN DRIP 25,000 UNITS/500 ML PREMIX IV SCH ×2 (02:08→17:29)
[2018-03-12] MEDS: ALBUMIN 25% 25 GM in PREMIX 1 EACH IV SCH (04:23)
[2018-03-12] MEDS: LINACLOTIDE 145 MCG CAPSULE PO SCH (06:18)
[2018-03-12 07:13] LABS: Basophils % 0.4 % (0.0-0.8); Eosinophils # 0.2 10*3/uL (0.0-0.87); Eosinophils % 3.6 % (0.00-10.9); Hematocrit 28.6 VOL% (35.7-47.0); Hemoglobin 9.6 GM/DL (12.0-16.0); Immature Granulocytes % 0.6 %; Immature Granulocytes Absolute 0.03 #; Lymphocytes # 0.3 10*3/uL (1.4-4.0); Lymphocytes % 6.3 % (21.3-54.2); Mean Corpuscular HGB Conc 33.6 GM/DL (32-36); Mean Corpuscular Hemoglobin 29 PG (27-34); Mean Corpuscular Volume 85.4 FL (87-102); Mean Platelet Volume 10.5 FL (9.6-12.0); Monocytes # 0.5 10*3/uL (0.11-0.8); Monocytes % 9.8 % (1.7-12.7); Neutrophils # 3.8 10*3/uL (1.4-7.4); Neutrophils % 79.3 % (38.7-73.9); Platelet Count 102 T/CUMM (130-400); Red Blood Count 3.35 MC/CUMM (3.8-5.5); Red Cell Distribution Width 16.9 % (9.3-17.3); White Blood Count 4.8 T/CUMM (4-12)
[2018-03-12 07:33] LABS: Calcium 8.4 MG/DL (8.5-10.1); Osmolality,Calculated 295.4 MOS/KG (273-304); Potassium 4.9 MMOL/L (3.5-5.1)
[2018-03-12 07:43] LABS: INR 2.1
[2018-03-12 07:59] LABS: PT Patient Result 22.7 SECS
[2018-03-12] MEDS: MULTIVITAMIN (CENTRUM) TABLET PO SCH (09:18)
[2018-03-12] MEDS: CALCIUM (CARBONATE)/VITAMIN D 600 MG-400 UNIT TABLET PO SCH (09:18)
[2018-03-12] MEDS: LETROZOLE 2.5 MG TABLET PO SCH (09:18)
[2018-03-12] MEDS: MEGESTROL 400 MG/10 ML UDCUP PO SCH (09:18)
[2018-03-12] MEDS: SODIUM BICARBONATE 650 MG TABLET PO SCH ×2 (09:19→20:29)
[2018-03-12] MEDS: amLODIPine 2.5 MG TABLET PO SCH (09:19)
[2018-03-12] MEDS: hydrALAZINE 25 MG TABLET PO SCH ×2 (09:19→20:29)
[2018-03-12] MEDS: BISACODYL 5 MG TABLET PO SCH (09:19)
[2018-03-12] MEDS: ASPIRIN EC 81 MG TABLET PO SCH (09:19)
[2018-03-12] MEDS: PANTOPRAZOLE 40 MG TABLET PO SCH (09:19)
[2018-03-12] MEDS: INSULIN LISPRO 100 UNIT/ML SUBCUT SCH ×4 (09:23→20:29)
[2018-03-12] MEDS ORDERED: MAGNESIUM SULF RIDER 2 GM in PREMIX 1 EACH IV PRN (09:26)
[2018-03-12] MEDS ORDERED: MAGNESIUM SULF RIDER 4 GM in PREMIX 1 EACH IV PRN (09:26)
[2018-03-12] MEDS: WARFARIN 5 MG TABLET PO SCH (17:11)
[2018-03-12] MEDS: SODIUM BICARB INJ 100 MEQ in DEXTROSE 5% 1,000 ML IV SCH ×2 (17:13→23:59)
[2018-03-12] MEDS: ROSUVASTATIN 20 MG TABLET PO SCH (20:29)
[2018-03-12] MEDS: MIRTAZAPINE 15 MG TABLET PO SCH (20:29)
[2018-03-13 05:51] LABS: Basophils % 0.4 % (0.0-0.8); Eosinophils # 0.3 10*3/uL (0.0-0.87); Eosinophils % 5.5 % (0.00-10.9); Hematocrit 30.2 VOL% (35.7-47.0); Immature Granulocytes % 0.6 %; Immature Granulocytes Absolute 0.03 #; Lymphocytes # 0.3 10*3/uL (1.4-4.0); Lymphocytes % 5.9 % (21.3-54.2); Mean Corpuscular HGB Conc 33.1 GM/DL (32-36); Mean Corpuscular Hemoglobin 29 PG (27-34); Mean Corpuscular Volume 86.8 FL (87-102); Mean Platelet Volume 10.5 FL (9.6-12.0); Monocytes # 0.5 10*3/uL (0.11-0.8); Monocytes % 9.5 % (1.7-12.7); Neutrophils # 3.7 10*3/uL (1.4-7.4); Neutrophils % 78.1 % (38.7-73.9); Platelet Count 112 T/CUMM (130-400); Red Blood Count 3.48 MC/CUMM (3.8-5.5); Red Cell Distribution Width 16.8 % (9.3-17.3); White Blood Count 4.8 T/CUMM (4-12)
[2018-03-13 06:06] LABS: INR 2.5; PT Patient Result 26.7 SECS
[2018-03-13] MEDS: LINACLOTIDE 145 MCG CAPSULE PO SCH (06:06)
[2018-03-13 06:14] LABS: Calcium 8.5 MG/DL (8.5-10.1); Osmolality,Calculated 294.4 MOS/KG (273-304); Potassium 4.4 MMOL/L (3.5-5.1)
[2018-03-13] MEDS: INSULIN LISPRO 100 UNIT/ML SUBCUT SCH ×4 (08:02→22:05)
[2018-03-13] MEDS ORDERED: MAGNESIUM SULF RIDER 2 GM in PREMIX 1 EACH IV ONE (09:30)
[2018-03-13] MEDS: MEGESTROL 400 MG/10 ML UDCUP PO SCH (10:22)
[2018-03-13] MEDS: MULTIVITAMIN (CENTRUM) TABLET PO SCH (10:22)
[2018-03-13] MEDS: SODIUM BICARBONATE 650 MG TABLET PO SCH ×2 (10:23→22:05)
[2018-03-13] MEDS: CALCIUM (CARBONATE)/VITAMIN D 600 MG-400 UNIT TABLET PO SCH (10:23)
[2018-03-13] MEDS: PANTOPRAZOLE 40 MG TABLET PO SCH (10:23)
[2018-03-13] MEDS: hydrALAZINE 25 MG TABLET PO SCH ×2 (10:23→22:05)
[2018-03-13] MEDS: amLODIPine 2.5 MG TABLET PO SCH (10:23)
[2018-03-13] MEDS: ASPIRIN EC 81 MG TABLET PO SCH (10:23)
[2018-03-13] MEDS: LETROZOLE 2.5 MG TABLET PO SCH ×2 (10:23→10:29)
[2018-03-13] MEDS: SODIUM BICARB INJ 100 MEQ, POTASSIUM CHLORIDE INJ 20 MEQ in DEXTROSE 5% 1,000 ML IV SCH (12:28)
[2018-03-13] MEDS: SODIUM BICARB INJ 100 MEQ in DEXTROSE 5% 1,000 ML IV SCH (16:50)
[2018-03-13] MEDS: ROSUVASTATIN 20 MG TABLET PO SCH (22:05)
[2018-03-13] MEDS: MIRTAZAPINE 15 MG TABLET PO SCH (22:05)
[2018-03-14] MEDS: LINACLOTIDE 145 MCG CAPSULE PO SCH (05:08)
[2018-03-14] MEDS: SODIUM BICARB INJ 100 MEQ in DEXTROSE 5% 1,000 ML IV SCH ×2 (05:08→16:10)
[2018-03-14 05:21] LABS: Basophils % 0.4 % (0.0-0.8); Eosinophils # 0.2 10*3/uL (0.0-0.87); Hematocrit 31.1 VOL% (35.7-47.0); Hemoglobin 10.2 GM/DL (12.0-16.0); Immature Granulocytes % 0.4 %; Immature Granulocytes Absolute 0.02 #; Lymphocytes # 0.2 10*3/uL (1.4-4.0); Lymphocytes % 4.3 % (21.3-54.2); Mean Corpuscular HGB Conc 32.8 GM/DL (32-36); Mean Corpuscular Hemoglobin 29 PG (27-34); Mean Corpuscular Volume 87.6 FL (87-102); Mean Platelet Volume 10.9 FL (9.6-12.0); Monocytes # 0.4 10*3/uL (0.11-0.8); Monocytes % 8.5 % (1.7-12.7); Neutrophils # 3.8 10*3/uL (1.4-7.4); Neutrophils % 81.4 % (38.7-73.9); Platelet Count 119 T/CUMM (130-400); Red Blood Count 3.55 MC/CUMM (3.8-5.5); Red Cell Distribution Width 16.3 % (9.3-17.3); White Blood Count 4.6 T/CUMM (4-12)
[2018-03-14 05:33] LABS: INR 2.7
[2018-03-14 05:34] LABS: PT Patient Result 28.9 SECS
[2018-03-14 05:48] LABS: Albumin 2.7 G/DL (3.4-5.0); Bilirubin,Total 0.9 MG/DL (0.2-1.0); Calcium 8.5 MG/DL (8.5-10.1); Osmolality,Calculated 289.5 MOS/KG (273-304); Potassium 3.8 MMOL/L (3.5-5.1); Total Protein 5.5 G/DL (6.4-8.3)
[2018-03-14 05:54] LABS: Hypochromasia 1+; Lymphocytes 5 % (20-55); Microcytosis 1+; Platelet Estimate Decreased; Segmented Neutrophils 89 % (50-85); Total Cells Counted 100
[2018-03-14] MEDS: INSULIN LISPRO 100 UNIT/ML SUBCUT SCH ×3 (08:11→16:11)
[2018-03-14] MEDS: LETROZOLE 2.5 MG TABLET PO SCH (08:55)
[2018-03-14] MEDS: MEGESTROL 400 MG/10 ML UDCUP PO SCH (08:55)
[2018-03-14] MEDS: ASPIRIN EC 81 MG TABLET PO SCH (08:55)
[2018-03-14] MEDS: SODIUM BICARBONATE 650 MG TABLET PO SCH (08:56)
[2018-03-14] MEDS: MULTIVITAMIN (CENTRUM) TABLET PO SCH (08:58)
[2018-03-14] MEDS: PANTOPRAZOLE 40 MG TABLET PO SCH (08:58)
[2018-03-14] MEDS: amLODIPine 2.5 MG TABLET PO SCH (08:59)
[2018-03-14] MEDS: BISACODYL 5 MG TABLET PO SCH (08:59)
[2018-03-14] MEDS: CALCIUM (CARBONATE)/VITAMIN D 600 MG-400 UNIT TABLET PO SCH (08:59)
[2018-03-14] MEDS: hydrALAZINE 25 MG TABLET PO SCH (09:00)
[2018-03-14 11:41] VITALS: BP 138/76
[2018-03-14] MEDS ORDERED: WARFARIN 4 MG TABLET PO SCH (18:00)
== END 2018-03-14 16:27 | DRG 300 ==
LOC: EDBD → EDUNIT# → N.ED 13:54 → N.EDINP 17:14 → SUATTDRO 17:14 → N.EDINP 18:50 → N.2E 19:03
PROVIDERS: ADMIT Internal Medicine; ATTEND Internal Medicine